=== PATIENT | female | born 1950 | race Caucasian/White ===

== ENCOUNTER 2017-06-01 06:09 | Day surgery (SDC) | payer OTHER ==
[2017-05-21 09:58] VITALS: BMI 40.0
--- NOTE | 2017-05-31 22:10 | History and Physical ---
History & Physical Date May 31, 2017. Chief Complaint Left foot pain History of Present Illness The patient is a 67 year old female with complaints of left foot pain and worsening flat foot deformity. She was treated conservatively however she has failed conservative management. X-rays demonstrate hindfoot osteoarthritis and pes planus deformity. She is now being set up for surgical tx. Past Medical/Surgical History PMH: hx of shingles, pulmonary nodule, Asthma, osteoporosis, hyperlipidemia, hyperuricemia, carotid bruit, gout, diverticulosis, GERD, hypothyroidism, allergic rhinitis Surgical hx: appendectomy, cholecystectomy, hysterectomy, bilateral carpal tunnel release, left TKA, x 3, colonoscopy. Social hx: Denies tobacco use, occasional alcohol use. Allergies Coded Allergies: Cat Dander (Verified Allergy, Mild, RUNNY NOSE, 05/21/17) Dog Dander (Verified Allergy, Mild, RUNNY NOSE, 05/21/17) Dust Mite Extract (Verified Allergy, Mild, RUNNY NOSE, 05/21/17) Grass (Verified Allergy, Mild, RUNNY NOSE, 05/21/17) Molds & Smuts (Verified Allergy, Mild, RUNNY NOSE, 05/21/17) NO KNOWN DRUG ALLERGIES (Verified Allergy, Mild, ., 05/21/17) [place] (Verified Allergy, Mild, RUNNY NOSE, 05/21/17) Home Medications Scheduled Allopurinol (Zyloprim), 300 MG PO QAM Ascorbic Acid (Vitamin C), 1,000 MG PO QAM Aspirin (Aspirin Ec), 81 MG PO QAM Cholecalciferol (Vitamin D3), 1 CAP PO QAM Hydrochlorothiazide (Hctz), 25 MG PO QAM Magnesium Gluconate (Magnesium), 30 MG PO QAM Meloxicam (Mobic), 7.5 MG PO QAM Montelukast Sodium (Singulair), 10 MG PO HS Pantoprazole (Protonix), 40 MG PO QAM Simvastatin (Zocor), 20 MG PO QPM Scheduled PRN Albuterol Hfa (Ventolin Hfa), 2-4 PUFFS INH Q6H PRN for Shortness of Breath Fluticasone Propionate (Inhala (Flovent Diskus), 1 PUFFS INH BID PRN for Shortness of Breath Physical Examination Skin: warm/dry, no rash Eyes: normal inspection Head: normocephalic, atraumatic Neck: supple, trachea midline Respiratory/Chest: lungs clear, normal breath sounds, no respiratory distress Cardiovascular: regular rate, rhythm, no murmur Abdomen / GI: normal bowel sounds, non tender Extremities: + pertinent finding (Left ankle: severe pes planovalgus deformity. Antalgic gait favoring LLE. Swelling of the the left hindfoot. Tender at the sinus tarsi and talonavicular joints. Decreased ROM in all directions, particularly dorsiflexion to 0 degrees. Decreased strength in all directions, especially inverison.) Neurologic/Psych: no motor/sensory deficits, alert, oriented x 3 Diagnosis Left hindfoot osteoarthritis Left pes planovalgus deformity. Left achilles contracture. Plan of Treatment Recommend a left triple arthrodesis, perc. CONNIE. All potential risks, benefits, complications, alternatives and rehab have been discussed with the patient and she wishes to proceed. She will be scheduled for 06.01.17 with ASA 81 mg BID for 4-6 wks for DVT prophylaxis.
[~2017-06-01] VITALS: Ht 162.6 cm; Wt 106.8 kg
[~2017-06-01 06:09] MED LIST: ALLO300T2 PO; ASCO10003 PO; ASPI81TA28 PO; CEFAZOLIN 2000 MG/60 ML D5W IV SCH; CHOL2000 PO; FLUT1AER5 INH; HYDR25TA4 PO; LACTATED RINGER'S 1000ML 1,000 ML IV SCH; MAGN30TA4 PO; MELO7.5T5 PO; MONT1TAB3 PO; PANT40TA PO; SIMV20TA2 PO; VNTHFA/IN INH
[2017-06-01 06:40] VITALS: BP 179/93; PULSE 92; TEMP 36.6; O2SAT 95; Ht 162.6 cm; Wt 106.8 kg
[2017-06-01] MEDS ORDERED: MIDAZOLAM HCL 1 MG/ML 2ML VIAL ONE ×2 (07:05→09:16)
[2017-06-01] MEDS ORDERED: FENTANYL CITRATE INJ 50 MCG/1 ML 2 ML VIAL ONE ×3 (07:05→11:23)
[2017-06-01] MEDS ORDERED: BUPIVACAINE 0.5 % 5 MG/1 ML PF 10ML VIAL ONE (07:14)
[2017-06-01] MEDS ORDERED: BACITRACIN 50000 UNIT VIAL ONE (07:15)
[2017-06-01] MEDS ORDERED: BUPIVACAINE 0.5 % 5 MG/1 ML MPF 30ML VIAL ONE (07:15)
--- NOTE | 2017-06-01 07:36 | History & Physical Bridge Note ---
H&P Re-Evaluation Bridge Note: I have examined the patient, reviewed the History & Physical and in the interval since the performance of the History & Physical I have noted the following changes of clinical significance: No changes noted
[2017-06-01] MEDS ORDERED: ATROPINE SULFATE 0.1 MG/ML 5ML SYR IV PRN (11:00)
[2017-06-01] MEDS ORDERED: LABETALOL HCL IV 5 MG/ML 20ML IV PRN (11:00)
[2017-06-01] MEDS ORDERED: HYDROmorphone INJ 1 MG/ML SYR IV PRN (11:00)
[2017-06-01] MEDS ORDERED: MEPERIDINE HCL 25 MG/ML CARP IV PRN (11:00)
[2017-06-01] MEDS ORDERED: ONDANSETRON INJ 2 MG/ML 2 ML VIAL IV PRN (11:00)
[2017-06-01] MEDS ORDERED: EpHEDrine SULFATE INJ 50 MG/ML AMP IV PRN (11:00)
[2017-06-01] MEDS ORDERED: FENTANYL CITRATE INJ 50 MCG/1 ML 2 ML VIAL IV PRN (11:00)
[2017-06-01] MEDS ORDERED: DEXAMETHASONE SOD INJ 4 MG/ML VIAL ONE (11:27)
[2017-06-01] MEDS ORDERED: LIDOCAINE HCL 2% 2 ML VIAL (20MG/ML) ONE (11:27)
[2017-06-01] MEDS ORDERED: LABETALOL HCL IV 5 MG/ML 20ML IV ONE (11:27)
[2017-06-01] MEDS ORDERED: PROPOFOL IV EMULSION 10 MG/ML 20 ML VIAL IV ONE (11:27)
[2017-06-01] MEDS ORDERED: GLYCOPYRROLATE INJ 0.2 MG/ML VIAL ONE (11:27)
[2017-06-01] MEDS ORDERED: ROCURONIUM BROMIDE 10 MG/ML 5 ML VIAL IV ONE (11:27)
[2017-06-01] MEDS ORDERED: ONDANSETRON INJ 2 MG/ML 2 ML VIAL ONE (11:27)
[2017-06-01] MEDS ORDERED: NEOSTIGMINE METHYLSULFATE 5 MG/5 ML SYR ONE (11:27)
--- NOTE | 2017-06-01 12:06 | DIAGNOSTIC IMAGING REPORT ---
LEFT ANKLE 2 VIEWS CLINICAL HISTORY: LEFT ANKLE TRIPLE arthrodesis. COMPARISON STUDY: None. FINDINGS: Total fluoroscopy time is 14 seconds. 2 fluoroscopic spot images of the left ankle. There is triple arthrodesis of the hindfoot with 3 cannulated screws. The hardware appears intact. IMPRESSION: Fluoroscopy provided for triple arthrodesis of the hindfoot. Electronically signed by: Jaswant Cheng M.D. 06/01/2017 12:04 PM Dictated Date/Time: 06/01/2017 12:03 PM
--- NOTE | 2017-06-01 12:12 | [facility] Post Operative Brief Note ---
Immediate Operative Summary Operative Date Jun 01, 2017. Pre-Operative Diagnosis Left hindfoot osteoarthritis, Posterior Tibial Tendon Dysfunction Grade 3, Left pes planovalgus deformity, Left achilles contracture Post-Operative Diagnosis Left hindfoot osteoarthritis, Posterior Tibial Tendon Dysfunction Grade 3, Left pes planovalgus deformity, Left achilles contracture Procedure(s) Performed 1. Left Triple Arthrodesis; 2. Percutaneous Tendon Achilles Lengthening Surgeon Dr. Trev Chavira Animal Sticker Surgeon(s) Andrew Landaverde PA-C Estimated Blood Loss 5ml Findings See Dict Specimens none per surgeon Dr. Trev Chavira Drains HV x 1 Anesthesia GLMA w/ popliteal and saphenous nerve blocks Complication(s) None Disposition Recovery Room / PACU
--- NOTE | 2017-06-01 13:13 | Anesthesiology Progress Note ---
Anesthesia Post Op Note Date & Time Jun 01, 2017 at 13:13 Vital Signs Pain Intensity: 0 Vital Signs Past 12 Hours Date Time Temp Pulse Resp B/P (MAP) Pulse Ox O2 Delivery O2 Flow Rate FiO2 06/01/17 13:11 36.8 78 18 124/61 94 Nasal Cannula 4 06/01/17 13:00 78 20 129/71 94 Nasal Cannula 4 06/01/17 12:50 75 18 120/57 93 Nasal Cannula 4 06/01/17 12:40 83 20 122/54 93 Nasal Cannula 4 06/01/17 12:30 81 20 127/59 96 Mask 10 06/01/17 12:18 36.3 86 18 140/60 95 Mask 10 06/01/17 08:45 86 16 165/98 (120) 97 Oxymask 5 06/01/17 06:40 36.6 92 20 179/93 95 Room Air Notes Mental Status: alert / awake / arousable, participated in evaluation Pt Amnestic to Procedure: Yes Nausea / Vomiting: adequately controlled Pain: adequately controlled Airway Patency, RR, SpO2: stable & adequate BP & HR: stable & adequate Hydration State: stable & adequate Anesthetic Complications: no major complications apparent
[2017-06-01] MEDS ORDERED: ASPI-589 PO (13:24)
[2017-06-01] MEDS ORDERED: OXYC-57 PO (13:24)
--- NOTE | 2017-06-01 13:25 | Discharge Instructions ---
Discharge Instructions Date of Service Jun 01, 2017. Admission Reason for Admission: Left Ankle/Foot Short Achilles Tendon, Osteoarthri Discharge Discharge Diagnosis / Problem: left hindfoot osteoarthritis Discharge Goals Goal(s): Decrease discomfort, Improve function Activity Recommendations Activity Limitations: per Instructions/Follow-up section Weightbearing Status: Left non-weightbearing . Instructions / Follow-Up Instructions / Follow-Up ACTIVITY RECOMMENDATIONS: Limitations: No weight bearing to affected limb at all times. SPECIAL CARE INSTRUCTIONS: * Some drainage onto the dressing is normal and is no cause for alarm. * Some swelling is natural especially after walking. * When resting, keep your foot elevated above the level of your heart. * Call [facility] if you notice: -Increased drainage -Fever over 101 degrees F -Severe constant pain BANDAGE: * Leave bandage/cast in place unless otherwise directed. * Keep bandage/cast dry at all times. FOLLOW UP VISIT WITH DR. LANDIS If appointment is not already scheduled: Please call [facility] after you get home today to schedule a follow-up appointment for [address] Landis at . Current Hospital Diet Patient's current hospital diet: Discharge Diet Recommended Diet: Regular Diet Procedures Procedures Performed: 1. Left Triple Arthrodesis; 2. Percutaneous Tendon Achilles Lengthening Pending Studies Studies pending at discharge: no Medical Emergencies . Who to Call and When: Medical Emergencies: If at any time you feel your situation is an emergency, please call 911 immediately. . Non-Emergent Contact Non-Emergency issues call your: Surgeon Call Non-Emergent contact if: temperature is above 101, your pain is not controlled, your pain is worsening . "Provider Documentation" section prepared by Andrew Landaverde. . VTE Core Measure Inpt VTE Proph given/why not?: Other Anticoagulation, T.E.D. Stockings
[2017-06-01 13:45] VITALS: BP_SYST 126; BP_SYST 132; BP_DIAS 60; BP_DIAS 67; PULSE 74; PULSE 89; TEMP 36.8; O2SAT 92; O2SAT 93
[2017-06-01 14:15] VITALS: BP 117/50; PULSE 90; TEMP 36.8; O2SAT 93
[2017-06-01 14:50] VITALS: BP 115/57; PULSE 90; O2SAT 93
--- NOTE | 2017-06-01 17:25 | OPERATIVE REPORT ---
DATE OF OPERATION: 06/01/2017 PREOPERATIVE DIAGNOSES: 1. Left hindfoot degenerative joint disease. 2. Posterior tibial tendon dysfunction, grade 3. 3. Left pes planovalgus deformity. 4. Achilles contracture. POSTOPERATIVE DIAGNOSES: Same. PROCEDURES: 1. Left triple arthrodesis. 2. Percutaneous tendo Achilles lengthening. SURGEON: Dr. Trev Chavira. ANESTHETIC ASSISTANT: Andrew Landaverde PA-C, who was present for patient positioning, sterile prep and drape, management of retractors and instruments. He was present through the critical portions of the case including wound closure, application of sterile dressing and transport of the patient to recovery. ANESTHESIA: General LMA with popliteal block with adductor canal block. SPECIMENS: None. DRAINS: Hemovac x1. COMPLICATIONS: None. BLOOD LOSS: 5 mL. PERTINENT HISTORY: This is a 67-year-old woman who had chronic progressive and worsening left hindfoot pain, deformity, swelling and abduction. The patient attempted conservative management including shoewear modification, activity modification, anti-inflammatories, rest, home exercises, physical therapy, and steroid injections and failed all measures. She had radiographic and MRI evidence of posterior tibial tendon dysfunction grade 3, hindfoot degenerative joint disease and severe pes planovalgus. The patient was then scheduled for surgery as indicated. DESCRIPTION OF PROCEDURE: The patient was taken to the Operating Suite, placed supine on the Operating Room table, after consent and identification of the proper operative site, the patient was anesthetized. LMA was placed. Tourniquet was placed high on the left lower extremity. Left lower extremity was then sterilely prepped and draped in the usual fashion. Exsanguinated with an Esmarch bandage and tourniquet inflated to 350 mmHg. Next, the foot was held in dorsiflexion and a three-part percutaneous incision was made with an 11-blade scalpel to lengthen the Achilles tendon using standard technique. Next, the stab incisions were then closed using interrupted skin nesha. Next, the 15-blade scalpel was used to make an incision from the distal aspect of the fibula to the base of the fourth metatarsal. The incision was deepened through subcutaneous tissue and meticulous hemostasis was obtained with electrocautery. Subcutaneous nerves were identified, retracted and protected. The extensor digitorum brevis was identified and was sharply elevated from the anterior process of the calcaneus revealing the sinus tarsi. Next, the sinus tarsi was debrided carefully with a rongeur and 15-blade scalpel. A cervical lamina cow washer was placed in the sinus tarsi opening the subtalar joint. Subtalar joint was then prepared with the use of a curette and rongeur to resect the articular surfaces down to subchondral bleeding bone. Irrigation was performed with sterile normal saline and then 2-mm drill bit was used to further prepare the joint surface with multiple drill holes in both surfaces of the subtalar joint and a small osteotome and mallet were used to fish scale the joint surfaces to increase surface area and bleeding. Next, the calcaneocuboid joint was then entered with the 15-blade scalpel, debrided of soft tissue and then a lamina cow washer was placed in the joint opening it for preparation with a curette and rongeur to remove any articular surface down to subchondral bleeding bone. Next, the 2-mm drill bit was used to further prepare the joint with multiple drill holes into the joint and then a small osteotome and mallet were used to fish scale the joint. Next, the 15-blade was used to make an incision from the distal aspect of the tibia to the base of the naviculocuneiform joint. The incision was deepened through subcutaneous tissue. Meticulous hemostasis obtained with electrocautery. A Weitlaner retractor was placed in the wound. The greater saphenous vein was identified, retracted and protected. The capsule of the talonavicular joint was then entered sharply with a 15-blade scalpel and elevated both superior and inferiorly. A small Gray was placed on the neck of the talus and further soft tissue elevation was performed with the 15-blade scalpel until the talonavicular joint was clearly visualized. The articular surface was then debrided with curette and rongeur and a cervical lamina cow washer was placed in the joint. Next, it was irrigated with sterile normal saline and a 2-mm drill bit was used to make multiple holes in the joint surfaces and fish scaling was performed with a small osteotome and mallet. Next, the medial and lateral incisions were irrigated with sterile normal saline and the joint surfaces were then aligned appropriately based on alignment of the lower extremity and the kneecap. Subtalar joint was aligned and then a 7.3-mm cannulated guidepin was driven from the superior aspect of the talus across the subtalar joint into the calcaneus under fluoroscopic control. Next, an appropriate length 7.3-mm long-thread screw was placed under fluoroscopic control and countersunk slightly. Next, the guidepin was removed. Next, a 2.25-mm guidepin was used to stabilize the talonavicular joint in appropriate alignment and then the calcaneocuboid joint was then stabilized with appropriate alignment under fluoroscopic control. Next, appropriate length of 7.3-mm long-thread cannulated screws were placed across the talonavicular and calcaneocuboid joints respectively under fluoroscopic control. All guidepins were removed. Wounds were irrigated with sterile normal saline and bone graft was then packed in and around the subtalar, talonavicular and calcaneocuboid joints which was comprised of 15 cc of cancellous bone chips. A 10-Tajik single lumen Hemovac drain was then placed in the lateral aspect of the wound exiting dorsolaterally and the extensor digitorum brevis then closed back to its origin with interrupted 2-0 Vicryl sutures. The talonavicular joint capsule was closed using 2-0 Vicryl sutures. The dermis was closed using buried interrupted 3-0 Vicryl sutures medially and laterally and then skin incisions were closed using 4-0 Nylon sutures. A sterile compressive dressing and bulky Phil-Ruiz plaster splint was applied, overwrapped with an Jose wrap. The tourniquet was released. DISPOSITION: Patient awakened and taken to Recovery in stable condition. I attest to the content of the Intraoperative Record and any orders documented therein. Any exceptions are noted below. DEVI
== END 2017-06-01 15:25 | disposition home or self-care (01) ==
LOC: C.ACU 06:09 → ENRESERV 13:02 → CANRESERV 13:02 → CANBEDREQ 13:39 → C.ACU 15:25
PROVIDERS: ATTEND Orthopaedic Surgery Sports Medicine
DX: M19.072 Primary osteoarthritis, left ankle and foot (principal); M67.962 Unspecified disorder of synovium and tendon, left lower leg; M67.02 Short Achilles tendon (acquired), left ankle; M21.42 Flat foot [pes planus] (acquired), left foot; I10 Essential (primary) hypertension; K21.9 Gastro-esophageal reflux disease without esophagitis; J45.909 Unspecified asthma, uncomplicated; E66.01 Morbid (severe) obesity due to excess calories

== ENCOUNTER 2019-05-30 10:30 | Inpatient (IN) ==
--- NOTE | 2019-05-19 15:11 | PAT Medication Instructions ---
Medication Instructions Date of Service May 19, 2019 Home Medications allopurinol 300 mg PO QAM aspirin 81 mg PO QAM calcium carbonate [Calcium 600] 600 mg PO QAM cholecalciferol (vitamin D3) Vitamin D3 1,000 mg PO QAM hydrochlorothiazide 25 mg PO QAM levothyroxine 25 mcg PO QAM magnesium 250 mg PO QAM meloxicam 7.5 mg PO QAM montelukast 10 mg PO QAM pantoprazole 40 mg PO QAM simvastatin 20 mg PO QAM albuterol sulfate 180 mcg INHALATION QID PRN ASK your surgeon for instructions meloxicam 7.5 mg PO QAM ASK your prescriber and surgeon aspirin 81 mg PO QAM DO NOT take the morning of surgery calcium carbonate [Calcium 600] 600 mg PO QAM cholecalciferol (vitamin D3) Vitamin D3 1,000 mg PO QAM hydrochlorothiazide 25 mg PO QAM magnesium 250 mg PO QAM montelukast 10 mg PO QAM Take morning of surgery With a small sip of water, OTHERWISE NOTHING TO EAT OR DRINK AFTER MIDNIGHT: allopurinol 300 mg PO QAM levothyroxine 25 mcg PO QAM pantoprazole 40 mg PO QAM simvastatin 20 mg PO QAM albuterol sulfate 180 mcg INHALATION QID PRN (use if needed; please bring with you to hospital day of surgery if possible) Take evening before surgery albuterol sulfate 180 mcg INHALATION QID PRN (if needed) Other Notes If you have any questions please call us at [phone] or [phone] or [phone] or [phone]
--- NOTE | 2019-05-20 09:11 | Anesthesiology Consultation ---
Date of Service May 20, 2019 Assessment & Plan (1) Encounter for pre-operative examination: Chart Review Chart Review: Acceptable Risk for Surgery and Patient seen in Pre Admission Testing Teaching & Discussion Pre-Anesthesia Teaching/Discussion Notes: Instructed NPO after midnight before surgery,except medications with 15 cc of water. Medication instructions provided according to the PAT guidelines. History Surgery Operation Date: 05/30/19 12:10 Proposed Procedures p Left Ankle Removal of Hardware, - Trev Chavira DO s Tibiotalar Fusion with Autograft, Left Foot Retrocalcaneal Nail Fusion, Left Ankle Autograft Holton Distal Fibula - Trev Chavira DO Height/Weight Height: 5 ft 5 in Weight: 124 kg Allergies Allergy/AdvReac Type Severity Reaction Status Date / Time cat dander Allergy Mild RUNNY NOSE Verified 05/15/19 15:02 dog dander Allergy Mild RUNNY NOSE Verified 05/15/19 15:02 grass pollen-perennial rye, Allergy Mild RUNNY NOSE Verified 05/15/19 15:02 standar mold Allergy Mild RUNNY NOSE Verified 05/15/19 15:02 No Known Drug Allergies Allergy Mild . Verified 05/15/19 15:02 Dust Mite Extract Allergy Mild RUNNY NOSE Uncoded 05/15/19 15:02 [place] Allergy Mild RUNNY NOSE Uncoded 05/15/19 15:02 Medications Home Medications Medication Instructions Recorded Confirmed Last Taken allopurinol 300 mg PO QAM 01/19/19 05/15/19 01/19/19 aspirin 81 mg PO QAM 01/19/19 05/15/19 01/19/19 calcium carbonate [Calcium 600] 600 mg PO QAM 01/19/19 05/15/19 01/19/19 cholecalciferol (vitamin D3) 1,000 mg PO QAM 01/19/19 05/15/19 01/19/19 [Vitamin D3] hydrochlorothiazide 25 mg PO QAM 01/19/19 05/15/19 01/19/19 levothyroxine 25 mcg PO QAM 01/19/19 05/15/19 01/19/19 magnesium 250 mg PO QAM 01/19/19 05/15/19 01/19/19 meloxicam 7.5 mg PO QAM 01/19/19 05/15/19 01/19/19 montelukast 10 mg PO QAM 01/19/19 05/15/19 01/19/19 pantoprazole 40 mg PO QAM 01/19/19 05/15/19 01/19/19 simvastatin 20 mg PO QAM 01/19/19 05/15/19 01/19/19 albuterol sulfate 180 mcg INHALATION QID PRN 05/15/19 05/15/19 Unknown Past Medical History Medical History Asthma stable GERD (gastroesophageal reflux disease) controlled Gout Hyperlipidemia Hypothyroidism Morbid obesity Osteoarthritis Osteoporosis Pulmonary HTN "Mild" per 08/2018 ECHO Swelling of lower leg on HCTZ Valvular heart disease "Mild" aortic stenosis (MG 1.4cm2, 17mmhg), Mild mitral stenosis per 08/2018 ECHO Exercise / Class Metabolic Activity III < 4 Walking/Shop/Light housework (uses cane (while wearing walking boot) for balance) Past Family History Family History Other No significant family history Past Surgical History Surgical History History of ankle surgery LEFT ANKLE History of appendectomy History of carpal tunnel release RT/LEFT History of cataract surgery RT/LEFT History of section X 3 History of cholecystectomy History of colonoscopy History of esophagogastroduodenoscopy (EGD) History of tonsillectomy History of tooth extraction History of total abdominal hysterectomy History of total knee replacement LEFT Past Anesthesia History No Hx of Anesthesia Complications (except PONV (no issues with most recent surgery)) History of PONV History of PONV (no issues with most recent surgery) Social History Smoking Status: Never smoker Do You Dip or Chew Tobacco: No Hx Alcohol Use: No Hx Substance Use: No substance use type: does not use Review of Systems Reflux controlled. Patient denies chest pain, shortness of breath, cough, wheezing, palpitations. Physical Exam Vital Signs VITALS BP 124/72 P 76 TEMP 97.7 SP02 95%RA RESP 16 PHYSICAL Full neck and c-spine range of motion. Full TMJ range of motion. TMD 3 finger breaths Mallampati Score 2 Dentition: upper partial Lungs: clear throughout to auscultation Cardiac: regular rate and rhythm, II/ systolic murmur Spine: kyphosis vs. cervical fat pad Carotid arteries: very faint bruit b/l Extremities: right ankle non-pitting edema, left foot in walking boot Testing Laboratory Results 05/20/19 09:30 05/20/19 09:30 PT 10.6 Seconds (9.0-12.0) 05/20/19 09:30 INR 1.0 (0.9-1.1) 05/20/19 09:30 APTT 30.1 Seconds (21.0-31.0) 05/20/19 09:30 Electrocardiogram Date: 05/20/19 Findings: + NSR @ (77) Chest X-Ray Date: 05/20/19 Atherosclerosis of the aortic arch. Cardiac silhouette normal in size. Lungs and pleural spaces clear. Degenerative changes of the thoracic spine. Cholec ystectomy clips noted. Echocardiogram Date: 09/03/18 EF > 70%. Hyperdynamic LV systolic function with no RWMA. Calcified aortic root/proximal descending thoracic aorta. Moderate LAD. Grade I DD. Heavily calcified aortic valve. Mild aortic stenosis (KATIE 1.4cm2, MG 17mmhg). Mild mitral stenosis. Mild pulmonary HTN. Other Testing Carotid duplex: 05/19/13: No hemodynamically significant stenosis. Tortuous b/l ICA. B/L vertebral antegrade flow.
--- NOTE | 2019-05-20 09:49 | XRay Report ---
XR chest Pre-admission PA/Lat CLINICAL HISTORY: 69 years-old Female presenting with preoperative evaluation. TECHNIQUE: PA and lateral views of the chest were obtained. COMPARISON: None. FINDINGS: Atherosclerosis of the aortic arch. Cardiac silhouette normal in size. Lungs and pleural spaces clear . Degenerative changes of the thoracic spine. Cholecystectomy clips noted. IMPRESSION: 1. No acute cardiopulmonary disease. Electronically signed by: Tate Amaya M.D. 05/20/2019 9:48 AM
[2019-05-20 10:56] LABS: Basophils # (auto) 0.04 K/uL (0-0.2); Basophils % (auto) 0.4 %; Eosinophils # (auto) 0.19 K/uL (0-0.5); Eosinophils % (auto) 2.1 %; Hematocrit (blood only) 42.6 % (37-47); Hemoglobin 14.5 g/dL (12.0-16.0); Immature Granulocytes # (auto) 0.03 K/uL (0.00-0.02); Immature Granulocytes % (auto) 0.3 %; Lymphocytes # (auto) 2.61 K/uL (1.2-3.4); Lymphocytes % (auto) 29.2 %; Mean Corpuscular Volume 90.1 fL (80-100); Mean Platelet Volume 10.2 fL (7.4-10.4); Monocytes # (auto) 1.12 K/uL (0.11-0.59); Monocytes % (auto) 12.5 %; Neutrophils # (auto) 4.95 K/uL (1.4-6.5); Neutrophils % (auto) 55.5 %; Platelet Count 264 K/uL (130-400); RDW Coefficient of Variation 14.1 % (11.5-14.5); RDW Standard Deviation 46.4 fL (36.4-46.3); Red Blood Count 4.73 M/uL (4.2-5.4); White Blood Count 8.94 K/uL (4.8-10.8)
[2019-05-20 11:03] LABS: BUN Creatinine Ratio 21.8 (10-20); Calcium 9.6 mg/dl (8.5-10.1); Creatinine Clr Calc Pharmacy 100.3 ml/min; Est GFR (African American) 102.5; Est GFR (Non-African American) 88.4; Potassium 4.1 mmol/L (3.5-5.1)
[2019-05-20 11:07] LABS: Partial Thromboplastin Ratio 1.1; Partial Thromboplastin Time 30.1 Seconds (21.0-31.0); Prothrombin Time 10.6 Seconds (9.0-12.0)
--- NOTE | 2019-05-29 17:05 | History & Physical Report ---
Date of Service May 29, 2019 Assessment & Plan (1) Osteoarthritis of ankle, left: Schedule left ankle fusion with retrocalcaneal nail and autograft, distal fibula autograft harvest, removal hardware x 3 screws from the subtalar/calcaneocuboid/talonavicular fusion sites for 05.30.19. All potential risks, benefits, complications, alternatives, and rehab have been discussed with the patient and she wishes to proceed. Plan for ASA 81 mg BID x 30 days for DVT prophylaxis. (2) Retained orthopedic hardware: History of Present Illness Chief Complaint: left ankle pain Primary Care Provider: Bharath Crespo DO This is a patient with a previous hx of a triple arthrodesis that healed well. 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 She was treated conservatively but failed all conservative management. She is now being set up for surgical management. Allergies Allergy/AdvReac Type Severity Reaction Status Date / Time cat dander Allergy Mild RUNNY NOSE Verified 05/15/19 15:02 dog dander Allergy Mild RUNNY NOSE Verified 05/15/19 15:02 grass pollen-perennial rye, Allergy Mild RUNNY NOSE Verified 05/15/19 15:02 standar mold Allergy Mild RUNNY NOSE Verified 05/15/19 15:02 No Known Drug Allergies Allergy Mild . Verified 05/15/19 15:02 Dust Mite Extract Allergy Mild RUNNY NOSE Uncoded 05/15/19 15:02 [place] Allergy Mild RUNNY NOSE Uncoded 05/15/19 15:02 Home Medications Home Medications Medication Instructions Recorded Confirmed Type allopurinol 300 mg PO QAM 01/19/19 05/15/19 History aspirin 81 mg PO QAM 01/19/19 05/15/19 History calcium carbonate [Calcium 600] 600 mg PO QAM 01/19/19 05/15/19 History cholecalciferol (vitamin D3) 1,000 mg PO QAM 01/19/19 05/15/19 History [Vitamin D3] hydrochlorothiazide 25 mg PO QAM 01/19/19 05/15/19 History levothyroxine 25 mcg PO QAM 01/19/19 05/15/19 History magnesium 250 mg PO QAM 01/19/19 05/15/19 History meloxicam 7.5 mg PO QAM 01/19/19 05/15/19 History montelukast 10 mg PO QAM 01/19/19 05/15/19 History pantoprazole 40 mg PO QAM 01/19/19 05/15/19 History simvastatin 20 mg PO QAM 01/19/19 05/15/19 History albuterol sulfate 180 mcg INHALATION QID PRN 05/15/19 05/15/19 History Past Med/Surg History Medical History Asthma stable GERD (gastroesophageal reflux disease) controlled Gout Hyperlipidemia Hypothyroidism Morbid obesity Osteoarthritis Osteoporosis Pulmonary HTN "Mild" per 08/2018 ECHO Swelling of lower leg on HCTZ Valvular heart disease "Mild" aortic stenosis (MG 1.4cm2, 17mmhg), Mild mitral stenosis per 08/2018 ECHO Surgical History History of ankle surgery LEFT ANKLE History of appendectomy History of carpal tunnel release RT/LEFT History of cataract surgery RT/LEFT History of section X 3 History of cholecystectomy History of colonoscopy History of esophagogastroduodenoscopy (EGD) History of tonsillectomy History of tooth extraction History of total abdominal hysterectomy History of total knee replacement LEFT Family History Other No significant family history Social History Preferred Language: Amharic Communication Ability: Effective Cell Geneticist Required: No Beliefs That Will Affect Care: None Current Living Situation: Spouse Other Information That Helps Us Care for You: No Feels Safe at Home: Yes Safety Concerns: Feels Safe At This Time Smoking Status: Never smoker Do You Dip or Chew Tobacco: No ; Second Hand Exposure: Yes ( A CHILD) ; Tobacco Cessation Education Requested by Patient: No Hx Alcohol Use: No Hx Substance Use: No Physical Exam Constitutional: well developed and well nourished; no acute distress ENMT: external ear and nose normal, oropharynx normal Neck: trachea midline, no thyromegaly Respiratory: normal respiratory effort, lungs clear to auscultation Cardiovascular: Rate/Rhythm: regular rate and regular rhythm Gastrointestinal (Abdomen): normal bowel sounds, soft, nontender, no hepatosplenomegaly Musculoskeletal: Left ankle: pes planovalgus deformity. Decreased ROM secondary to triple arthrodesis. Pain and crepitation with tibiotalar motion. Tender anterior ankle joint. Skin: no rashes, warm and dry Neurologic: normal touch/pain/proprioception Psychiatric: A+Ox3, euthymic affect Lymphatic: no cervical or axillary lymphadenopathy
[~2019-05-30 10:30] MED LIST changes: -ALLO300T2 PO; -ASCO10003 PO; -ASPI81TA28 PO; -CEFAZOLIN 2000 MG/60 ML D5W IV SCH; -CHOL2000 PO; -FLUT1AER5 INH; -HYDR25TA4 PO; -LACTATED RINGER'S 1000ML 1,000 ML IV SCH; +LR 15ML/HR IV SCH; -MAGN30TA4 PO; -MELO7.5T5 PO; -MONT1TAB3 PO; -PANT40TA PO; +ROPIVACAINE 0.5% 5 MG/ML 30 ML VIAL ONE; -SIMV20TA2 PO; -VNTHFA/IN INH
[2019-05-30] MEDS ORDERED: SCOPOLAMINE 1.5 MG TDSY ONE (13:50)
[2019-05-30] MEDS ORDERED: MIDAZOLAM HCL 1 MG/ML 2ML VIAL ONE ×2 (13:51→13:57)
[2019-05-30] MEDS ORDERED: fentaNYL citrate 100 MCG/2 ML VIAL ONE ×3 (13:57→17:08)
[2019-05-30] MEDS ORDERED: ePHEDrine sulfate 50 MG/ML AMP IV PRN (14:16)
[2019-05-30] MEDS ORDERED: ATROPINE SULFATE 0.1 MG/ML 10ML SYR IV PRN (14:16)
[2019-05-30] MEDS ORDERED: HYDROmorphone INJ 2 MG/ML SYR/VIAL IV PRN (14:16)
--- NOTE | 2019-05-30 14:29 | History & Physical Bridge Note ---
Date of Service May 30, 2019 History & Physical Bridge Note I have examined the patient, reviewed the History & Physical and in the interval since the performance of the History & Physical I have noted the following changes of clinical significance: no changes noted
[2019-05-30] MEDS ORDERED: BACITRACIN INJ 50,000 UNIT VIAL ONE (14:31)
[2019-05-30] MEDS ORDERED: CEFAZOLIN 2,000 MG/15 ML IV PUSH IV ONE (14:32)
[2019-05-30] MEDS ORDERED: CEFAZOLIN 2000MG 2,000 MG/15 ML SYR IV ONE (14:51)
[2019-05-30] MEDS ORDERED: ROPIVACAINE 0.5% 5 MG/ML 30 ML VIAL ONE (14:59)
[2019-05-30] MEDS ORDERED: SUCCINYLCHOLINE CHLORIDE 20 MG/ML 10 ML VIAL ONE (15:58)
[2019-05-30] MEDS ORDERED: PROPOFOL IV EMULSION 10 MG/ML 20 ML VIAL IV ONE ×2 (15:58→17:23)
[2019-05-30] MEDS ORDERED: ROCURONIUM BROMIDE 10 MG/ML 5 ML VIAL ONE (15:58)
[2019-05-30] MEDS ORDERED: ONDANSETRON INJ 2 MG/ML 2 ML VIAL ONE ×2 (15:58→18:02)
[2019-05-30] MEDS ORDERED: LIDOCAINE HCL 2% 2 ML VIAL/AMP(20MG/ML) INFIL ONE (15:58)
[2019-05-30] MEDS ORDERED: LABETALOL HCL IV 5 MG/ML 20ML IV ONE ×4 (17:10→18:02)
[2019-05-30] MEDS ORDERED: MAGNESIUM HYDROXIDE SUSP 30 ML UDC PO PRN (18:05)
[2019-05-30] MEDS ORDERED: ONDANSETRON INJ 2 MG/ML 2 ML VIAL IV PRN (18:05)
[2019-05-30] MEDS ORDERED: METOCLOPRAMIDE HCL INJ 5 MG/ML 2 ML VIAL IV PRN (18:05)
[2019-05-30] MEDS ORDERED: HYDROmorphone INJ 0.5 MG/0.5 ML SYR IV PRN (18:05)
[2019-05-30] MEDS ORDERED: NALOXONE HCL 0.4 MG/1 ML VIAL/CARP IV PRN (18:05)
[2019-05-30] MEDS ORDERED: BISACODYL 10 MG SUPP PR PRN (18:05)
[2019-05-30] MEDS ORDERED: ALUMINUM/MAGNESIUM SUSP 30 ML UDC PO PRN (18:05)
[2019-05-30] MEDS ORDERED: NO NSAIDS SCH (18:15)
--- NOTE | 2019-05-30 18:23 | Fluoroscopy Report ---
FL ankle LT min 3V RTN CLINICAL HISTORY: LEFT FOOT RETROCALCANEAL NAIL FUSION COMPARISON STUDY: 06/01/2017 FLUOROSCOPY TIME: 125 seconds. NUMBER OF FLUOROSCOPIC IMAGES: 4 FINDINGS: There is been revision of the hindfoot fusion. There is now evidence for a retrocalcaneal n ail fusion with evidence of tibiotalar fusion. There is an intramedullary tibial shahram traversing the t ibiotalar joint and talus calcaneal joint. There is evidence for a distal fibular osteotomy. IMPRESSION: Intraoperative radiographs demonstrating a tibiotalar and hindfoot fusion. Electronically signed by: Kayden Tracy M.D. 05/30/2019 6:21 PM
--- NOTE | 2019-05-30 18:51 | Post Operative Brief Note ---
Immediate Post Op Note v1 Date of Surgery May 30, 2019 Pre & Post Diagnosis Operation Date: 05/30/19 12:30 Pre-Op Diagnosis: (1) Osteoarthritis of ankle, left: (2) Retained orthopedic hardware: (3) valgus deformity left ankle Post-Op Diagnosis: (1) Osteoarthritis of ankle, left: (2) Retained orthopedic hardware: (3) valgus deformity left ankle Procedure Operation Date: 05/30/19 12:30 Actual Procedures p Left Ankle Removal of Hardware (3 separate incision sites),(Left) - Trev Chavira DO s Tibiotalar Fusion with Autograft, Left Foot Retrocalcaneal Nail Fusion, Left Ankle Autograft [place] Distal Fibula(Left) - Trev Chavira DO Surgeon Trev Chavira DO [employer] Controls Mechanic Alonso Butterfield PA-C Estimated Blood Loss 100 Findings Consistent with Post-Op Diagnosis Specimens None Drains Hemovac Drain (10 fr) Anesthesia Type General Regional Complications none Disposition Accompanied Patient To Recovery: No Disposition: Recovery Room
--- NOTE | 2019-05-30 19:29 | Anesthesiology Progress Note ---
Date of Service May 30, 2019 Anesthesia Post Procedure Vital Signs Vital Signs: Temp Pulse Pulse Resp BP BP Pulse Ox 05/30/19 19:25 83 18 136/58 L 93 05/30/19 19:15 86 19 138/55 L 95 05/30/19 19:05 90 20 131/54 L 94 05/30/19 18:56 36.2 C L 92 H 20 130/58 L 96 05/30/19 11:00 36.8 C 91 H 18 104/78 97 Pain Intensity Left Ankle: Pain Intensity: 0 Transfer of Care Handoff Completed per policy Notes Mental Status: alert / awake / arousable and participated in evaluation Patient Amnestic to Procedure: Yes Nausea / Vomiting: adequately controlled Pain: adequately controlled Airway Patency, RR, SpO2: stable & adequate BP & HR: stable & adequate Hydration State: stable & adequate Anesthetic Complications: no major complications apparent
[2019-05-30] MEDS: SODIUM CHLORIDE 0.9% 1000ML 1,000 ML IV SCH (19:50)
[2019-05-30] MEDS ORDERED: ALBUTEROL HFA INHALER 8.5 GM INH PRN (20:15)
[2019-05-30] MEDS ORDERED: SENNA 8.6 MG TAB PO SCH (21:00)
[2019-05-30] MEDS: OXYCODONE HCL IR 5 MG TAB (IMMEDIATE RELEASE) PO PRN (22:02)
[2019-05-30] MEDS: ASPIRIN 81 MG ECTAB PO SCH (22:03)
[2019-05-30] MEDS: ACETAMINOPHEN 500 MG TAB PO SCH (22:04)
[2019-05-30] MEDS: DOCUSATE SODIUM 100 MG CAP PO SCH (22:04)
[2019-05-30] MEDS: CEFAZOLIN 2000MG 2,000 MG/15 ML SYR IV SCH (22:05)
--- NOTE | 2019-05-31 02:15 | Operative Report ---
DATE OF OPERATION: 05/30/2019 PREOPERATIVE DIAGNOSES: 1. Left ankle retained hardware x3 screws. 2. Degenerative arthritis, left ankle. 3. Osteoarthritis of the left ankle. 4. Valgus deformity of the left ankle. POSTOPERATIVE DIAGNOSES: 1. Left ankle retained hardware x3 screws. 2. Degenerative arthritis, left ankle. 3. Osteoarthritis of the left ankle. 4. Valgus deformity of the left ankle. PROCEDURES: 1. Left ankle tibiotalar fusion with autograft. 2. Left retrocalcaneal nail fusion. 3. Left ankle autograft harvest of the fibula. 4. Left ankle removal of hardware (3 separate incision sites). SURGEON: Trev Chavira D.O. DESK REPRESENTATIVE: Alonso Butterfield PA-C, who was present for patient positioning, sterile prep and drape, management of retractors and instruments. He was present through the critical portions of the case including wound closure, application of sterile dressing and transport of the patient to recovery. ANESTHESIA: General regional. SPECIMENS: None. DRAINS: Hemovac x1. COMPLICATIONS: None. BLOOD LOSS: 100 mL. PERTINENT HISTORY: This is a 69-year-old woman who had a prior triple arthrodesis due to the posterior tibial tendon dysfunction and tear grade 3. She had a successful outcome for several years; however, then noted worsening ankle and lateral hindfoot pain as her foot began to drift further and further into valgus. She is obese and has chronic progressive degenerative changes of the left ankle joint over time. The patient attempted and failed conservative management including use of a brace, anti-inflammatories, rest, intra-articular steroid injections, physician directed home exercises and use of an assistive device. Radiographs demonstrated severe valgus deformity, retained hardware and degenerative arthritis of the tibiotalar joint. The patient is scheduled for surgery as indicated. All potential risks, benefits, complications, alternatives, rehab, potential for incomplete relief of the symptoms, need for further surgery, DVT, PE, , persistent pain, swelling, scarring, weakness, neurovascular injury, wound complications, hardware failure, nonunion, malunion, bone fracture were discussed with the patient. The patient decided to proceed with the procedure as indicated. DESCRIPTION OF PROCEDURE: After induction of sedation and regional anesthetic of the left lower extremity in the preoperative holding area, the patient was taken to the operative suite, placed supine on the operating table. I reviewed consent and identification of proper operative site. The patient was anesthetized. LMA was placed. Tourniquet was placed high on left thigh over cast padding. Left lower extremity was then sterilely prepped and draped in usual fashion, elevated and extended with an Esmarch bandage, tourniquet inflated to 350 mmHg. Next, a #15 blade scalpel was used to make a curvilinear incision centered over the distal fibula extending distally over the lateral foot at the site of prior incision. Incision was deepened through the skin and subcutaneous tissue as well as through the subcutaneous scar tissue. The sinus tarsi was entered and full-thickness skin flaps developed, elevated anteriorly. The peroneal tendons were identified, retracted and protected. The fibula was then skeletonized with a #15 blade scalpel. Appropriate retractors were placed both anterior and posterior and the distal aspect of the fibula was then resected with an oblique osteotomy cut in line with the ankle mortise. Fibula was then removed, split in half with sagittal saw and then the cancellous bone was then harvested for later use as autograft. Next, the tibiotalar joint was then visualized. Hohmann retractors were placed anterior and posterior as well as a lamina candy packer placed in the tibiotalar joint opening the severe valgus deformity. Tibiotalar joint was then irrigated with sterile normal saline until clear and then the joint was then prepped using rongeur and curette to remove any residual articular cartilage down to subcortical bone. Next, the bony surface was then drilled with a 2.0-mm drill bit and then fish scaled with a 6-mm osteotome and mallet. As this was completed, next attention then directed toward the screws that were in the hindfoot and the talus. Three separate incisions were made, one over the talar neck, one medial and one lateral to localize the screw heads. Some rongeur was required to remove overgrown bone. Screws were removed and the holes were curetted with a small curette and irrigated with sterile normal saline. Next, the retrocalcaneal nail guide pin was then placed percutaneously through the plantar aspect of the foot through a small stab incision with #15 blade scalpel. Hemostat was used to spread the soft tissue and then placed in the center-center position both AP and lateral projections in line with the lateral process of the talus on the lateral and in the center-center position of the tibia. Approximately 5 degrees of compensatory varus was built into the fusion as the nail provided 5-7 degrees of valgus during its contour. Next, guide pin was placed through the calcaneus, talus, and then opening reamer was passed through the calcaneus and talus. Next, the 5.5-mm drill was then passed in through the plantar incision through the bones of the heel and hindfoot through the talus and into the tibia under live fluoroscopic assistance. This was drilled into the tibia and then a ball tip guide shahram was passed through the calcaneus, talus and into the tibia. Next, sequential reaming was performed with 11.5-mm reaming, was irrigated with sterile normal saline followed by implantation of the 240 mm x 10 mm retrocalcaneal Synthes nail. Once this was placed under live fluoroscopic assistance to appropriate depth, a #15 blade scalpel, an incision was made posterior aspect of the calcaneal tuberosity and the spiral blade was inserted over a guide pin placed under live fluoroscopic assistance to depth of 90 mm. A second locking screw, 6 mm x 90 mm was placed to the secondary locking device in the calcaneus. Next, this was back slapped to further compress subtalar joint fusion and then a talar locking screw was placed obliquely through the posterolateral portal site under live fluoroscopic assistance. Next, autograft was then impacted into the tibiotalar joint, making up the deficit left by the previous valgus deformity of the ankle. This was placed in a more anatomic alignment. There is no impingement and there is more appropriate striking position for the heel at neutral dorsiflexion. After this was completed, the bone graft was then impacted into the tibiotalar joint. The nail was then backslapped to provide compression at the tibiotalar joint and this was locked using 2 locking screws, 1 in the dynamic slot, 1 in the static slot through 2 small stab incisions in the medial aspect of the tibia placed in live fluoroscopic assistance. Once the locking screws were in place, the construct was stabilized and compressed as appropriate. Final radiographs were obtained and all incisions then carefully irrigated with sterile normal saline with bacitracin until clear. Top gloves were changed and a full-thickness flap closure was performed on the lateral flap with 2-0 Vicryl. The 10-Persian Hemovac drain was placed exiting dorsolaterally. The medial incision was closed using buried interrupted 2-0 Vicryl. The dermis was closed using buried interrupted 3-0 Vicryl and then the plantar heel was closed using skin nesha after the dermis was closed using 3-0 Vicryl. Next, the sterile compressive dressing and bulky Phil Ruiz plaster splint was applied overwrapped with an Jose wrap. The tourniquet was released. The patient was awakened and taken to recovery room in stable condition. I attest to the content of the Intraoperative Record and any orders documented therein. Any exception s are noted below.
[2019-05-31] MEDS: OXYCODONE HCL IR 5 MG TAB (IMMEDIATE RELEASE) PO PRN ×2 (03:56→13:36)
[2019-05-31] MEDS: ACETAMINOPHEN 500 MG TAB PO SCH ×2 (05:47→13:36)
[2019-05-31] MEDS: SODIUM CHLORIDE 0.9% 1000ML 1,000 ML IV SCH (05:51)
[2019-05-31 06:22] LABS: Hematocrit (blood only) 37.3 % (37-47); Hemoglobin 12.5 g/dL (12.0-16.0); Mean Corpuscular Hgb Conc 33.5 g/dL (32-36); Mean Corpuscular Volume 88.6 fL (80-100); Mean Platelet Volume 9.7 fL (7.4-10.4); Platelet Count 242 K/uL (130-400); RDW Coefficient of Variation 14.6 % (11.5-14.5); RDW Standard Deviation 47.6 fL (36.4-46.3); Red Blood Count 4.21 M/uL (4.2-5.4); White Blood Count 13.83 K/uL (4.8-10.8)
[2019-05-31] MEDS ORDERED: LEVOTHYROXINE SODIUM 25 MCG TABLET PO SCH (06:30)
[2019-05-31] MEDS: CEFAZOLIN 2000MG 2,000 MG/15 ML SYR IV SCH (06:40)
[2019-05-31 07:06] LABS: BUN Creatinine Ratio 21.7 (10-20); Est GFR (African American) 78.8; Potassium 3.4 mmol/L (3.5-5.1)
[2019-05-31] MEDS: ASPIRIN 81 MG ECTAB PO SCH (08:16)
[2019-05-31] MEDS: DOCUSATE SODIUM 100 MG CAP PO SCH (08:16)
[2019-05-31] MEDS ORDERED: hydroCHLOROthiazide 25 MG TAB PO SCH (09:00)
[2019-05-31] MEDS ORDERED: CALCIUM CARBONATE 1250MG TAB PO SCH (09:00)
[2019-05-31] MEDS ORDERED: ALLOPURINOL 300 MG TAB PO SCH (09:00)
[2019-05-31] MEDS ORDERED: MULTIVITAMIN TAB PO SCH (09:00)
[2019-05-31] MEDS ORDERED: SIMVASTATIN 20 MG TAB PO SCH (09:00)
[2019-05-31] MEDS ORDERED: CHOLECALCIFEROL 1,000 UNITS TAB PO SCH (09:00)
[2019-05-31] MEDS ORDERED: PANTOprazole 40 MG TAB PO SCH (09:00)
[2019-05-31] MEDS ORDERED: NON-FORMULARY MEDICATION (Magnesium 250 MG) PO SCH (09:00)
[2019-05-31] MEDS ORDERED: MONTELUKAST SODIUM 10 MG TABLET PO SCH (09:00)
--- NOTE | 2019-05-31 11:12 | Orthopedic Progress Note ---
Date of Service May 31, 2019 Assessment & Plan (1) Osteoarthritis of ankle, left: 1. Left ankle tibiotalar fusion with autograft. 2. Left retrocalcaneal nail fusion. 3. Left ankle autograft harvest of the fibula. 4. Left ankle removal of hardware (3 separate incision sites). DC home today, NWB left LE ASA DVT prophalxis Subjective POD#1 . Patient notes pain is well controlled and would like to go home today. No dizziness, CP, SOB, Calf pain Physical Exam Physical Exam: Toes mobile, NVI. Calves soft, non tender. Splint in place. Results & Data Vital Signs (Past 12 Hours) Vital Signs Temp Pulse Resp BP Pulse Ox 05/31/19 07:57 36.6 C 85 16 108/60 92 05/31/19 03:26 36.7 C 83 16 113/58 L 97
--- NOTE | 2019-06-03 14:14 | Discharge Summary ---
DISCHARGE DIAGNOSES: Left ankle retained hardware x3 screws; degenerative arthritis, left ankle; osteoarthritis, left ankle; valgus deformity of the left ankle. SECONDARY DIAGNOSES: Asthma, gastroesophageal reflux disease, gout, hyperlipidemia, hypothyroidism, morbid obesity, osteoarthritis, osteoporosis, pulmonary hypertension, lower extremity swelling, valvular heart disease. CONSULTS: None. COMPLICATIONS: None. PROCEDURES: Left ankle tibiotalar fusion with autograft, left retrocalcaneal nail fusion, left ankle autograft harvesting of the fibula and the left ankle removal of hardware by Dr. Chavira on 05/30/2019. BRIEF HISTORY: As dictated in the history and physical. HOSPITAL SUMMARY: The patient was admitted on the above-noted date and had the above-noted surgery performed, which she tolerated well. On the first postoperative day, the patient notes pain is well controlled and would like to go home. No dizziness and denied shortness of breath, chest pain or calf pain. Toes were mobile. Neurovascularly intact. Calves were soft, nontender and a splint was in place. The patient was otherwise remaining stable. Vital signs were stable and she was afebrile and it was felt she could be discharged to home on 05/31/2019. For further review, please see chart. LABORATORY AND X-RAY DATA: As per chart. DISCHARGE INSTRUCTIONS: The patient was discharged home in satisfactory condition on 05/31/2019. Diet: Regular. Activity: Nonweightbearing, left lower extremity. Follow hindfoot reconstruction instructions and follow up with Dr. Chavira in 2 weeks. The patient is to call for appointment if one has not made for you. DISCHARGE MEDICATIONS: Acetaminophen 1000 mg p.o. q. 8 hours, aspirin 81 mg p.o. b.i.d., oxycodone 5-10 mg p.o. q. 4 hours p.r.n. Resume home meds as listed. Stop taking aspirin and meloxicam.
== END 2019-05-31 14:03 | disposition home or self-care (01) | DRG 493 ==
LOC: ASU 10:30 → 3E 18:05

== ENCOUNTER 2021-05-13 14:00 | Observation (INO) ==
--- NOTE | 2021-05-13 17:54 | XRay Report ---
XR chest 1V portable HISTORY: 71 years-old Female Chest Pain . Acute atypical chest pain COMPARISON: Chest radiograph 05/20/2019 TECHNIQUE: Portable AP view of the chest FINDINGS: Cardiac silhouette is enlarged. No pneumothorax. Mild bilateral reticular interstitial opacities. Mil d right hemidiaphragmatic elevation. No pleural effusion or lobar airspace consolidation. Bones appea r grossly intact. IMPRESSION: Mild bilateral reticular opacities have progressed from 2019 and may be on a chronic basi s. Pulmonary vascular congestion or interstitial pneumonitis also considered. ACT 112: Negative or not required by law. The above report was generated using voice recognition software. It may contain grammatical, syntax o r spelling errors. Electronically signed by: Timothy Barahona M.D. 05/13/2021 5:52 PM
[2021-05-13] MEDS ORDERED: NITROGLYCERIN 2% OINTMENT 30GM TUBE EXT ONE (17:57)
[2021-05-13] MEDS ORDERED: SODIUM CHLORIDE 0.9% 1000ML 1,000 ML IV ONE (17:57)
[2021-05-13] MEDS ORDERED: ASPIRIN CHEW 324 MG PO STA (17:58)
--- NOTE | 2021-05-13 18:03 | Emergency Department Note ---
Impression & Plan Chest pain, Acute hypotension ED Provider Note NAME: ZEN FUNK AGE: 71 SEX: F : 1950 ARRIVES VIA: Walk-In INFORMANT: Patient ED PROVIDER(S): Alex Sofia DO CHIEF COMPLAINT: Chest pain HPI: Patient is a 71-year-old female who presents ER for precordial chest pressure/fullness. She has had this since yesterday associated with left arm pain and neck pain which has now resolved. It started again today and now her pain is to about a 1 out of 10. Denies any belly pain, nausea, vomiting, or diarrhea. No dysuria, urgency, or frequency. She does have a history of hypertension hyperlipidemia. She is not a smoker. Denies any other complaints at this time. She notes 2 previous days she did have some reflux as well. She has taken all her medications for her elevated blood pressure. No previous problems with her aorta. ROS: See above HPI for pertinent positives & negatives. A total of 10 systems reviewed and were otherwise negative. PAST MEDICAL HISTORY:See Below PAST SURGICAL HISTORY:See Below FAMILY HISTORY:See Below SOCIAL HISTORY:See Below HOME MEDICATIONS:See Below ALLERGIES:See Below VITALS:See Below PHYSICAL EXAMINATION: GENERAL: Sitting up in bed, alert, well appearing, well nourished, no distress, non-toxic EYE EXAM: normal conjunctiva. OROPHARYNX: no exudate, no erythema, lips, buccal mucosa, and tongue normal and mucous membranes are moist NECK: supple, no nuchal rigidity, no adenopathy, non-tender LUNGS: Clear to auscultation. Normal chest wall mechanics HEART: no murmurs, S1 normal and S2 normal ABDOMEN: abdomen soft, non-tender, normo-active bowel sounds, no masses, no rebound or guarding. UPPER EXTREMITIES: upper extremities are grossly normal. LOWER EXTREMITIES: No pitting edema. NEURO EXAM: Normal sensorium, cranial nerves II-XII grossly intact, normal speech, no gross weakness of arms, no gross weakness of legs. MEDICAL DECISION MAKING: Patient is a 71-year-old female who presents the ER for left neck pain and chest pain. IV was established blood was obtained. Labs show mild leukocytosis. No significant anemia. INR unremarkable. BMP with LFTs bilirubin and troponin was negative. Magnesium was unremarkable. Covid was negative. Chest x-ray unremarkable. Patient was updated bedside. She was placed on Nitropaste as pressures were in the 200s initially. This trended down to the 170s. She was discussed with hospitalist admitted for further work-up. She was given aspirin as well. Discussed with Pt concerning signs and symptoms to watch out for. Pt w as instructed to follow up with their PCP and discussed with the patient their option to return to the ED at anytime for persistent or worsening symptoms. The appropriate anticipatory guidance and out-patient management, including indications for return to the emergency department, were explained at length to the patient and understood. Triage Nursing notes reviewed. Limited review of prior medical records performed Vital Signs: reviewed and remarkable for HTN and tachy Differential diagnosis: Differential diagnoses includes but is not limited to acute coronary syndrome, myocardial infarction, pericarditis, pulmonary embolus, aortic dissection, pneumonia, pneumothorax, musculoskeletal, shingles, esophageal. ER treatment provided: See below Diagnostics interpreted by me: ECG: Sinus rhythm rate of 98 Normal axis No PVCs QTC 462 ST wave changes in the high lateral leads new from 2017 Cardiac Monitoring: An order was placed for continuous cardiac monitoring. The monitor shows a rate of 101 with sinus rhythm. Laboratory studies: As stated above and show below. Imaging studies: Portable AP upright 1 view of the chest was unremarkable Consultation(s): Discussed with Flavio Mejía for further evaluation Procedures: none Critical Care: None Past Med/Surg History Medical History (Updated 05/13/21 @ 22:31 by Alex Sofia DO) Asthma stable GERD (gastroesophageal reflux disease) controlled Gout Hyperlipidemia Hypertension Hypothyroidism Morbid obesity Osteoarthritis Osteoporosis Pulmonary HTN "Mild" per 08/2018 ECHO Swelling of lower leg on HCTZ Valvular heart disease "Mild" aortic stenosis (MG 1.4cm2, 17mmhg), Mild mitral stenosis per 08/2018 ECHO Surgical History History of ankle surgery LEFT ANKLE History of appendectomy History of carpal tunnel release RT/LEFT History of cataract surgery RT/LEFT History of section X 3 History of cholecystectomy History of colonoscopy History of esophagogastroduodenoscopy (EGD) History of tonsillectomy History of tooth extraction History of total abdominal hysterectomy History of total knee replacement LEFT Family History Other No significant family history Social History Smoking Status: Never smoker Second Hand Exposure: Yes ( A CHILD); Hx Alcohol Use: No Hx Substance Use: No Preferred Language: Khmer Communication Ability: Effective Reducing Salon Attendant Required: No Beliefs That Will Affect Care: None marital status: Current Living Situation: Spouse Feels Safe at Home: Yes Assistive Devices: Glasses and Walker Allergies Allergies Allergy/AdvReac Type Severity Reaction Status Date / Time cat dander Allergy Mild RUNNY NOSE Verified 05/13/21 19:44 dog dander Allergy Mild RUNNY NOSE Verified 05/13/21 19:44 grass pollen-perennial rye, Allergy Mild RUNNY NOSE Verified 05/13/21 19:44 standar mold Allergy Mild RUNNY NOSE Verified 05/13/21 19:44 No Known Drug Allergies Allergy Mild . Verified 05/13/21 19:44 Home Meds Home Medications Medication Instructions Recorded Confirmed allopurinol 300 mg tablet 300 mg PO QAM 01/19/19 05/13/21 calcium carbonate 600 mg calcium 600 mg PO QAM 01/19/19 05/13/21 (1,500 mg) tablet (Calcium) cholecalciferol (vitamin D3) 25 1,000 mg PO QAM 01/19/19 05/13/21 mcg (1,000 unit) tablet (Vitamin D3) hydrochlorothiazide 25 mg tablet 25 mg PO QAM 01/19/19 05/13/21 levothyroxine 25 mcg tablet 25 mcg PO QAM 01/19/19 05/13/21 magnesium 250 mg tablet 250 mg PO QAM 01/19/19 05/13/21 montelukast 10 mg tablet 10 mg PO QAM 01/19/19 05/13/21 pantoprazole 40 mg tablet,delayed 40 mg PO QAM 01/19/19 05/13/21 release simvastatin 20 mg tablet 20 mg PO QAM 01/19/19 05/13/21 aspirin 81 mg tablet,delayed 81 mg PO QAM 05/13/21 05/13/21 release losartan 50 mg tablet 50 mg PO QAM 05/13/21 05/13/21 meloxicam 7.5 mg tablet 7.5 mg PO QAM 05/13/21 05/13/21 Results & Data (ED) Vital Signs Vital Signs - 24 hr 05/13/21 14:05 05/13/21 14:08 05/13/21 18:00 Temperature 36.7 C Temperature Source Temporal Artery Scan Pulse Rate 108 H 88 Pulse Rate from SpO2 Sensor 88 Respiratory Rate 18 16 Respiratory Effort / Characteristics Non-Labored Spontaneous Non-Labored Spontaneous Respiratory Depth Normal Normal Respiratory Pattern Regular Blood Pressure 213/95 H 172/88 H Blood Pressure Mean 134 116 Blood Pressure Position Sitting Pulse Oximetry 96 98 Oxygen Delivery Method Room Air Room Air Sepsis Recent Fever Within 48 Hours No Sepsis New/Unexplained Change in Mental Status N/A Sepsis Action Taken by Nursing No Action Required 05/13/21 18:08 05/13/21 19:00 05/13/21 19:30 Temperature Temperature Source Pulse Rate 86 90 Pulse Rate from SpO2 Sensor 88 89 Respiratory Rate 23 18 Respiratory Effort / Characteristics Respiratory Depth Respiratory Pattern Blood Pressure 159/114 H 170/97 H Blood Pressure Mean 129 121 Blood Pressure Position Pulse Oximetry 98 97 Oxygen Delivery Method Room Air Sepsis Recent Fever Within 48 Hours Sepsis New/Unexplained Change in Mental Status Sepsis Action Taken by Nursing Laboratory Data Result diagrams: 05/13/21 18:00 05/13/21 18:00 Lab Results 05/13/21 05/13/21 05/13/21 Range/Units 18:00 18:00 18:00 WBC 12.80 H (4.8-10.8) K/uL RBC 5.14 (4.2-5.4) M/uL Hgb 15.7 (12.0-16.0) g/dL Hct 46.2 (37-47) % MCV 89.9 (80-100) fL MCH 30.5 (25-34) pg MCHC 34.0 (32-36) g/dL RDW Std Deviation 46.6 H (36.4-46.3) fL RDW Coeff of Stella 14.2 (11.5-14.5) % Plt Count 274 (130-400) K/uL MPV 9.7 (7.4-10.4) fL Immature Gran % (Auto) 0.3 % Neut % (Auto) 65.1 % Lymph % (Auto) 25.4 % [place] % (Auto) 7.9 % Eos % (Auto) 0.9 % Baso % (Auto) 0.4 % Neut # (Auto) 8.34 H (1.4-6.5) K/uL Lymph # (Auto) 3.25 (1.2-3.4) K/uL [place] # (Auto) 1.01 H (0.11-0.59) K/uL Eos # (Auto) 0.11 (0-0.5) K/uL Baso # (Auto) 0.05 (0-0.2) K/uL Immature Gran # (Auto) 0.04 H (0.00-0.02) K/uL PT 10.3 (9.0-12.0) Seconds INR 1.0 (0.9-1.1) APTT 28.0 (21.0-31.0) Seconds PTT Ratio 1.1 Sodium 137 (136-145) mmol/L Potassium 3.7 (3.5-5.1) mmol/L Chloride 103 (98-107) mmol/L Carbon Dioxide 28 (21-32) mmol/L Anion Gap 6.0 (3-11) BUN 17 (7-18) mg/dl Creatinine 0.77 (0.6-1.2) mg/dl Est Cr Clr Drug Dosing 88.1 ml/min Est GFR ( Amer) 90.0 ml/min Est GFR (Non-Af Amer) 77.7 ml/min BUN/Creatinine Ratio 22.0 H (10-20) Glucose 97 (70-99) mg/dl Calcium 9.7 (8.5-10.1) mg/dl Magnesium 2.4 (1.8-2.4) mg/dl Total Bilirubin 0.5 (0.2-1) mg/dl AST 30 (15-37) U/L ALT 45 (12-78) U/L Alkaline Phosphatase 103 (45-117) U/L Troponin I < 0.015 (0-0.045) ng/ml Total Protein 9.2 H (6.4-8.2) gm/dl Albumin 4.3 (3.4-5.0) gm/dl Globulin 4.9 H (2.5-4.0) gm/dl Albumin/Globulin Ratio 0.9 (0.9-2) COVID-19 Eval Order SARS-CoV-2 (PCR) (Negative) 05/13/21 05/13/21 Range/Units 18:54 18:54 WBC (4.8-10.8) K/uL RBC (4.2-5.4) M/uL Hgb (12.0-16.0) g/dL Hct (37-47) % MCV (80-100) fL MCH (25-34) pg MCHC (32-36) g/dL RDW Std Deviation (36.4-46.3) fL RDW Coeff of Stella (11.5-14.5) % Plt Count (130-400) K/uL MPV (7.4-10.4) fL Immature Gran % (Auto) % Neut % (Auto) % Lymph % (Auto) % [place] % (Auto) % Eos % (Auto) % Baso % (Auto) % Neut # (Auto) (1.4-6.5) K/uL Lymph # (Auto) (1.2-3.4) K/uL [place] # (Auto) (0.11-0.59) K/uL Eos # (Auto) (0-0.5) K/uL Baso # (Auto) (0-0.2) K/uL Immature Gran # (Auto) (0.00-0.02) K/uL PT (9.0-12.0) Seconds INR (0.9-1.1) APTT (21.0-31.0) Seconds PTT Ratio Sodium (136-145) mmol/L Potassium (3.5-5.1) mmol/L Chloride (98-107) mmol/L Carbon Dioxide (21-32) mmol/L Anion Gap (3-11) BUN (7-18) mg/dl Creatinine (0.6-1.2) mg/dl Est Cr Clr Drug Dosing ml/min Est GFR ( Amer) ml/min Est GFR (Non-Af Amer) ml/min BUN/Creatinine Ratio (10-20) Glucose (70-99) mg/dl Calcium (8.5-10.1) mg/dl Magnesium (1.8-2.4) mg/dl Total Bilirubin (0.2-1) mg/dl AST (15-37) U/L ALT (12-78) U/L Alkaline Phosphatase (45-117) U/L Troponin I (0-0.045) ng/ml Total Protein (6.4-8.2) gm/dl Albumin (3.4-5.0) gm/dl Globulin (2.5-4.0) gm/dl Albumin/Globulin Ratio (0.9-2) COVID-19 Eval Order Covid19 at [facility] SARS-CoV-2 (PCR) NEGATIVE (Negative) Administered Medications Discontinued Medications Aspirin (Aspirin Chew 324 Mg) 243 mg PO NOW STA Stop: 05/13/21 17:59 Last Admin: 05/13/21 18:04 Dose: 243 mg Documented by: [id number] Sodium Chloride (Nss 1000ml) 1,000 mls @ 999 mls/hr IV .Q1H1M ONE Stop: 05/13/21 18:57 Last Infusion: 05/13/21 19:08 Dose: 0 mls/hr Documented by: [id number] Admin: 05/13/21 18:00 Dose: 999 mls/hr Documented by: [id number] Metoprolol Succinate (Metoprolol Succ 25mg Ext Rel Tab) 25 mg PO NOW STA Stop: 05/13/21 19:57 Last Admin: 05/13/21 20:48 Dose: 25 mg Documented by: [id number] Nitroglycerin (Nitroglycerin 2% Ointment 30gm Tube) 1 inch EXT NOW ONE Stop: 05/13/21 17:58 Last Admin: 05/13/21 18:04 Dose: 1 inch Documented by: [id number] Potassium Chloride (Potassium Chloride Crtab 20 Meq Tabcr) 20 meq PO NOW STA Stop: 05/13/21 19:59 Last Admin: 05/13/21 20:48 Dose: 20 meq Documented by: [id number] Imaging Data Radiologist's Impression: Chest X-Ray 05/13/21 17:41 XR chest 1V portable HISTORY: 71 years-old Female Chest Pain . Acute atypical chest pain COMPARISON: Chest radiograph 05/20/2019 TECHNIQUE: Portable AP view of the chest FINDINGS: Cardiac silhouette is enlarged. No pneumothorax. Mild bilateral reticular interstitial opacities. Mild right hemidiaphragmatic elevation. No pleural effusion or lobar airspace consolidation. Bones appear grossly intact. IMPRESSION: Mild bilateral reticular opacities have progressed from 2019 and may be on a chronic basis. Pulmonary vascular congestion or interstitial pneumonitis also considered. ACT 112: Negative or not required by law. The above report was generated using voice recognition software. It may contain grammatical, syntax or spelling errors. Electronically signed by: Timothy Barahona M.D. 05/13/2021 5:52 PM Discharge Plan Visit Data Chief Complaint: Chest Pain Stated Complaint: CHEST PAIN, LEFT SHOULDER PAIN, HYPERTENSION ED Provider: Alex Sofia Discharge Problem: Chest pain, Acute hypotension Patient Disposition: Admitted As Inpatient Discharge Instructions Interventions: ED Discharge Assessment Last Done: 05/13/21 21:00 Discharge Problem: Chest pain Qualifiers: Chest pain type: unspecified Qualified Code(s): R07.9 - Chest pain, unspecified
[2021-05-13 18:10] LABS: Basophils # (auto) 0.05 K/uL (0-0.2); Basophils % (auto) 0.4 %; Eosinophils # (auto) 0.11 K/uL (0-0.5); Eosinophils % (auto) 0.9 %; Hematocrit (blood only) 46.2 % (37-47); Hemoglobin 15.7 g/dL (12.0-16.0); Immature Granulocytes # (auto) 0.04 K/uL (0.00-0.02); Immature Granulocytes % (auto) 0.3 %; Lymphocytes # (auto) 3.25 K/uL (1.2-3.4); Lymphocytes % (auto) 25.4 %; Mean Corpuscular Hemoglobin 30.5 pg (25-34); Mean Corpuscular Volume 89.9 fL (80-100); Mean Platelet Volume 9.7 fL (7.4-10.4); Monocytes # (auto) 1.01 K/uL (0.11-0.59); Monocytes % (auto) 7.9 %; Neutrophils # (auto) 8.34 K/uL (1.4-6.5); Neutrophils % (auto) 65.1 %; Platelet Count 274 K/uL (130-400); RDW Coefficient of Variation 14.2 % (11.5-14.5); RDW Standard Deviation 46.6 fL (36.4-46.3); Red Blood Count 5.14 M/uL (4.2-5.4)
[2021-05-13 18:22] LABS: Partial Thromboplastin Ratio 1.1; Prothrombin Time 10.3 Seconds (9.0-12.0)
[2021-05-13 18:32] LABS: Alanine Aminotransferase 45 U/L (12-78); Albumin Level 4.3 gm/dl (3.4-5.0); Aspartate Aminotransferase 30 U/L (15-37); Blood Urea Nitrogen 17 mg/dl (7-18); Calcium 9.7 mg/dl (8.5-10.1); Carbon Dioxide 28 mmol/L (21-32); Chloride 103 mmol/L (98-107); Creatinine Clr Calc Pharmacy 88.1 ml/min; Est GFR (Non-African American) 77.7 ml/min; Glucose 97 mg/dl (70-99); Potassium 3.7 mmol/L (3.5-5.1); Sodium 137 mmol/L (136-145)
[2021-05-13 18:37] LABS: Albumin Globulin Ratio 0.9 (0.9-2); Alkaline Phosphatase 103 U/L (45-117); Bilirubin,Total 0.5 mg/dl (0.2-1); Globulin 4.9 gm/dl (2.5-4.0); Total Protein 9.2 gm/dl (6.4-8.2); Troponin I < 0.015 ng/ml (0-0.045)
[2021-05-13] MEDS ORDERED: METOPROLOL TARTRATE 1 MG/ML VIAL IV PRN (19:56)
[2021-05-13] MEDS ORDERED: METOPROLOL SUCC 25MG EXT REL TAB PO STA (19:56)
[2021-05-13] MEDS ORDERED: POTASSIUM CHLORIDE CRTAB 20 MEQ TABCR PO STA (19:58)
--- NOTE | 2021-05-13 20:12 | History & Physical Report ---
Date of Service May 13, 2021 Assessment & Plan (1) Chest pain radiating to jaw: Plan: Chest pain radiating to jaw and left shoulder/hypertension- The patient will be admitted to telemetry for serial cardiac enzymes, serial EKG's, cardiac rhythm monitoring and a 2-D echocardiogram with Dopplers. Continue aspirin 81 mg every morning, losartan 50 mg every morning, magnesium 2050 mg every morning. Add metoprolol succinate 25 mg p.o. now Lopressor 5 mg IV every 4 hours as needed systolic blood pressure greater than 160 (2) Hypertension: Plan: See above (3) Carotid bruit present: Plan: Carotid bruit present on the right, with decreased upstroke on the left Order carotid Dopplers (4) Asthma: Plan: Not on any routine inhalers (5) Valvular heart disease: Plan: Mild aortic stenosis noted on previous echo. Check with echo this admission (6) Hypothyroidism: Plan: Continue levothyroxine 25 mcg every morning (7) Hyperlipidemia: Plan: Continue simvastatin 20 mg every morning Check a fasting lipid panel (8) GERD (gastroesophageal reflux disease): Plan: Continue pantoprazole 40 mg every morning (9) Gout: Plan: Continue allopurinol 300 mg every morning hold HCTZ History of Present Illness Chief Complaint: The patient presents to the emergency department with complaint of upper sternum, left-sided neck and left shoulder pain, with first episode yesterday, and repeat episode today. Primary Care Provider: Bharath Crespo DO The patient is a 71-year-old female with a past medical history including gout, hypertension, vitamin D deficiency, hypothyroidism, osteoarthritis, GERD, hyperlipidemia and morbid obesity. She presents with symptoms as noted above. Her symptoms yesterday began while she was standing, initially began as sharp left-sided neck pain, which then extended into her left shoulder. Her symptoms did improve later on in the day without intervention. She slept okay last night, and then as the day progressed today she did develop recurrence of the discomfort, and also had upper sternal discomfort as well. She presents to the ED for further assessment. Allergies Allergy/AdvReac Type Severity Reaction Status Date / Time cat dander Allergy Mild RUNNY NOSE Verified 05/13/21 19:44 dog dander Allergy Mild RUNNY NOSE Verified 05/13/21 19:44 grass pollen-perennial rye, Allergy Mild RUNNY NOSE Verified 05/13/21 19:44 standar mold Allergy Mild RUNNY NOSE Verified 05/13/21 19:44 No Known Drug Allergies Allergy Mild . Verified 05/13/21 19:44 Dust Mite Extract Allergy Mild RUNNY NOSE Uncoded 05/13/21 19:44 [place] Allergy Mild RUNNY NOSE Uncoded 05/13/21 19:44 Home Medications Medication Instructions Recorded Confirmed Type allopurinol 300 mg tablet 300 mg PO QAM 01/19/19 05/13/21 History calcium carbonate 600 mg calcium 600 mg PO QAM 01/19/19 05/13/21 History (1,500 mg) tablet (Calcium) cholecalciferol (vitamin D3) 25 1,000 mg PO QAM 01/19/19 05/13/21 History mcg (1,000 unit) tablet (Vitamin D3) hydrochlorothiazide 25 mg tablet 25 mg PO QAM 01/19/19 05/13/21 History levothyroxine 25 mcg tablet 25 mcg PO QAM 01/19/19 05/13/21 History magnesium 250 mg tablet 250 mg PO QAM 01/19/19 05/13/21 History montelukast 10 mg tablet 10 mg PO QAM 01/19/19 05/13/21 History pantoprazole 40 mg tablet,delayed 40 mg PO QAM 01/19/19 05/13/21 History release simvastatin 20 mg tablet 20 mg PO QAM 01/19/19 05/13/21 History aspirin 81 mg tablet,delayed 81 mg PO QAM 05/13/21 05/13/21 History release losartan 50 mg tablet 50 mg PO QAM 05/13/21 05/13/21 History meloxicam 7.5 mg tablet 7.5 mg PO QAM 05/13/21 05/13/21 History Past Med/Surg History Medical History (Updated 05/13/21 @ 20:08 by Flavio Mejía MD) Asthma stable GERD (gastroesophageal reflux disease) controlled Gout Hyperlipidemia Hypertension Hypothyroidism Morbid obesity Osteoarthritis Osteoporosis Pulmonary HTN "Mild" per 08/2018 ECHO Swelling of lower leg on HCTZ Valvular heart disease "Mild" aortic stenosis (MG 1.4cm2, 17mmhg), Mild mitral stenosis per 08/2018 ECHO Surgical History History of ankle surgery LEFT ANKLE History of appendectomy History of carpal tunnel release RT/LEFT History of cataract surgery RT/LEFT History of section X 3 History of cholecystectomy History of colonoscopy History of esophagogastroduodenoscopy (EGD) History of tonsillectomy History of tooth extraction History of total abdominal hysterectomy History of total knee replacement LEFT Family History Other No significant family history Social History Smoking Status: Never smoker Second Hand Exposure: Yes ( A CHILD); Hx Alcohol Use: No Hx Substance Use: No Preferred Language: Irish Communication Ability: Effective Supervisor Tank Storage Required: No Beliefs That Will Affect Care: None marital status: Current Living Situation: Spouse Feels Safe at Home: Yes Assistive Devices: Glasses and Walker Review of Systems Review of Systems: The patient denies palpitations, shortness of breath, dyspnea on exertion, cough, lower extremity swelling, sore throat, fevers, chills, sweats, weight change, fatigue, nausea, vomiting, diarrhea , constipation, abdominal pain, pelvic pain, blood in urine or stool, dysuria, urinary frequency or urgency, lightheadedness, dizziness, headache, memory loss, loss of consciousness, rash, abnormal bruising or bleeding, imbalance, focal or generalized weakness, numbness or tingling in right arm or bilateral legs, generalized arthralgias or myalgias, back or neck pain, or night sweats. The review of systems is otherwise negative other than for that already noted above, and at least 10 systems have been reviewed. Physical Exam Physical Exam: The patient is awake, alert and oriented 3, well developed and well nourished, normocephalic and atraumatic, lying in bed and in no acute distress. HEENT--PERRL, EOMI, mucous membranes and oropharynx normal. Neck--supple. No JVD. No bruits. Thyroid normal, trachea midline, no adenopathy. Heart--normal S1 and S2. No murmurs, rubs or gallops. Lungs--clear bilaterally, no respiratory distress, no accessory muscle use. Abdomen--normal bowel sounds and soft. Nontender. Nondistended. Morbidly obese Extremities--no cyanosis or clubbing. No edema. There are good distal pulses b/l. Dermatologic--normal skin turgor, normal color, no abnormal lymph nodes, no rash. Neurologic--cranial nerves II through XII grossly intact. Rheumatologic--normal range of motion. Psychiatric--normal affect. Results & Data Results & Data ([facility]) Vital Signs (Past 12 Hours) Vital Signs Temp Pulse Resp BP Pulse Ox 05/13/21 19:30 90 18 170/97 H 97 05/13/21 19:00 86 23 159/114 H 98 05/13/21 18:00 88 16 172/88 H 98 05/13/21 14:05 98.1 F 108 H 18 213/95 H 96 Laboratory Results Laboratory Results WBC 12.80 K/uL (4.8-10.8) H 05/13/21 18:00 RBC 5.14 M/uL (4.2-5.4) 05/13/21 18:00 Hgb 15.7 g/dL (12.0-16.0) 05/13/21 18:00 Hct 46.2 % (37-47) 05/13/21 18:00 MCV 89.9 fL (80-100) 05/13/21 18:00 MCH 30.5 pg (25-34) 05/13/21 18:00 MCHC 34.0 g/dL (32-36) 05/13/21 18:00 RDW Std Deviation 46.6 fL (36.4-46.3) H 05/13/21 18:00 RDW Coeff of Stella 14.2 % (11.5-14.5) 05/13/21 18:00 Plt Count 274 K/uL (130-400) 05/13/21 18:00 MPV 9.7 fL (7.4-10.4) 05/13/21 18:00 Immature Gran % (Auto) 0.3 % 05/13/21 18:00 Neut % (Auto) 65.1 % 05/13/21 18:00 Lymph % (Auto) 25.4 % 05/13/21 18:00 [place] % (Auto) 7.9 % 05/13/21 18:00 Eos % (Auto) 0.9 % 05/13/21 18:00 Baso % (Auto) 0.4 % 05/13/21 18:00 Neut # (Auto) 8.34 K/uL (1.4-6.5) H 05/13/21 18:00 Lymph # (Auto) 3.25 K/uL (1.2-3.4) 05/13/21 18:00 [place] # (Auto) 1.01 K/uL (0.11-0.59) H 05/13/21 18:00 Eos # (Auto) 0.11 K/uL (0-0.5) 05/13/21 18:00 Baso # (Auto) 0.05 K/uL (0-0.2) 05/13/21 18:00 Immature Gran # (Auto) 0.04 K/uL (0.00-0.02) H 05/13/21 18:00 PT 10.3 Seconds (9.0-12.0) 05/13/21 18:00 INR 1.0 (0.9-1.1) 05/13/21 18:00 APTT 28.0 Seconds (21.0-31.0) 05/13/21 18:00 PTT Ratio 1.1 05/13/21 18:00 Sodium 137 mmol/L (136-145) 05/13/21 18:00 Potassium 3.7 mmol/L (3.5-5.1) 05/13/21 18:00 Chloride 103 mmol/L (98-107) 05/13/21 18:00 Carbon Dioxide 28 mmol/L (21-32) 05/13/21 18:00 Anion Gap 6.0 (3-11) 05/13/21 18:00 BUN 17 mg/dl (7-18) 05/13/21 18:00 Creatinine 0.77 mg/dl (0.6-1.2) 05/13/21 18:00 Est Cr Clr Drug Dosing 88.1 ml/min 05/13/21 18:00 Est GFR ( Amer) 90.0 ml/min 05/13/21 18:00 Est GFR (Non-Af Amer) 77.7 ml/min 05/13/21 18:00 BUN/Creatinine Ratio 22.0 (10-20) H 05/13/21 18:00 Glucose 97 mg/dl (70-99) 05/13/21 18:00 Calcium 9.7 mg/dl (8.5-10.1) 05/13/21 18:00 Total Bilirubin 0.5 mg/dl (0.2-1) 05/13/21 18:00 AST 30 U/L (15-37) 05/13/21 18:00 ALT 45 U/L (12-78) 05/13/21 18:00 Alkaline Phosphatase 103 U/L (45-117) 05/13/21 18:00 Troponin I < 0.015 ng/ml (0-0.045) 05/13/21 18:00 Total Protein 9.2 gm/dl (6.4-8.2) H 05/13/21 18:00 Albumin 4.3 gm/dl (3.4-5.0) 05/13/21 18:00 Globulin 4.9 gm/dl (2.5-4.0) H 05/13/21 18:00 Albumin/Globulin Ratio 0.9 (0.9-2) 05/13/21 18:00 COVID-19 Eval Order Covid19 at [facility] 05/13/21 18:54 Impressions Chest X-Ray 05/13/21 17:41 XR chest 1V portable HISTORY: 71 years-old Female Chest Pain . Acute atypical chest pain COMPARISON: Chest radiograph 05/20/2019 TECHNIQUE: Portable AP view of the chest FINDINGS: Cardiac silhouette is enlarged. No pneumothorax. Mild bilateral reticular interstitial opacities. Mild right hemidiaphragmatic elevation. No pleural effusion or lobar airspace consolidation. Bones appear grossly intact. IMPRESSION: Mild bilateral reticular opacities have progressed from 2019 and may be on a chronic basis. Pulmonary vascular congestion or interstitial pneumonitis also considered. ACT 112: Negative or not required by law. The above report was generated using voice recognition software. It may contain grammatical, syntax or spelling errors. Electronically signed by: Timothy Barahona M.D. 05/13/2021 5:52 PM ECG Additional Comments: ZEN FUNK ID:[id number] 13-MAY-2021 14:13:15 [facility]- EDSTAT ROUTINE RETRIEVAL Normal sinus rhythm Normal ECG When compared with ECG of 20-MAY-2019 09:28, No significant change was found 25mm/s 10mm/mV 150Hz 9.0.9 12SL 241 SHITAL: 16 Unconfirmed Vent. rate 98 BPM MN interval 198 ms QRS duration 86 ms QT/QTc 362/462 ms P-R-T axes 53 18 56 1950 (71 yr) Female 14lb Room: Loc:15 Motel Clerk:Nika Galloway Te Code Status & VTE Plan Code Status Full code VTE Prophylaxis Plan VTE Prophylaxis will be ordered: Yes PG Care Time/CCT Total # of Minutes Spent Total Time Spent with Patient: Total time spent is greater than 50% in coordination of care (as documented) at patient's floor/unit and/or counseling patient: Coding Level of Care Code INT OBSERVATION CARE 70M LVL 3 Diagnoses Chest pain radiating to jaw R07.9 Hypertension I10 Carotid bruit present R09.89 Asthma J45.909 Valvular heart disease I38 Hypothyroidism E03.9 Hyperlipidemia E78.5 GERD (gastroesophageal reflux disease) K21.9 Gout M10.9
[2021-05-13 20:22] LABS: Magnesium 2.4 mg/dl (1.8-2.4)
[2021-05-13] MEDS ORDERED: ONDANSETRON INJ 2 MG/ML 2 ML VIAL IV PRN (21:33)
[2021-05-13] MEDS ORDERED: ACETAMINOPHEN 325 MG TAB PO PRN (21:33)
--- NOTE | 2021-05-13 22:47 | Ultrasound Report ---
US carotid doppler BI CLINICAL HISTORY: 71 years-old Female with carotid bruit on right, decreased upstroke on left. COMPARISON: None TECHNIQUE: Multiple real time sonographic images of the carotid bifurcations were obtained assessing gao scale, color Doppler and spectral wave form appearance FINDINGS: RIGHT CAROTID: The peak systolic velocity measured within the right ICA is88 cm/sec. The end diasto lic velocity measured 19 cm/sec. The ICA to CCA ratio measured 0.88 which correlates with a stenosis of 0-50%. Moderate atherosclerotic plaque of the right carotid bulb and proximal right ICA. LEFT CAROTID: The peak systolic velocity measured within the left ICA is98 cm/sec. The end diastoli c velocity measured 20 cm/sec. The ICA to CCA ratio measured 0.98 which correlates with a stenosis of 0-50%. Mild atherosclerotic plaque of the left carotid bulb. There is normal antegrade vertebral flow bilaterally. IMPRESSION: 1. Right greater than left atherosclerotic plaque of the carotid bulbs. No hemodynamically significa nt stenosis. 2. Normal antegrade vertebral flow bilaterally. ACT 112: Negative or not required by law. The above report was generated using voice recognition software. It may contain grammatical, syntax o r spelling errors. Electronically signed by: Timothy Barahona M.D. 05/13/2021 10:45 PM
[2021-05-14] MEDS: NITROGLYCERIN 2% OINTMENT 30GM TUBE EXT SCH ×3 (00:07→12:06)
[2021-05-14 04:25] VITALS: TEMP 97.9
[2021-05-14] MEDS ORDERED: LEVOTHYROXINE SODIUM 25 MCG TABLET PO SCH (06:30)
[2021-05-14 07:09] LABS: Basophils # (auto) 0.03 K/uL (0-0.2); Basophils % (auto) 0.4 %; Eosinophils # (auto) 0.27 K/uL (0-0.5); Eosinophils % (auto) 3.7 %; Hematocrit (blood only) 41.8 % (37-47); Hemoglobin 13.8 g/dL (12.0-16.0); Immature Granulocytes # (auto) 0.01 K/uL (0.00-0.02); Immature Granulocytes % (auto) 0.1 %; Lymphocytes % (auto) 35.8 %; Mean Corpuscular Hemoglobin 30.2 pg (25-34); Mean Corpuscular Volume 91.5 fL (80-100); Mean Platelet Volume 9.6 fL (7.4-10.4); Monocytes # (auto) 0.79 K/uL (0.11-0.59); Monocytes % (auto) 10.9 %; Neutrophils # (auto) 3.57 K/uL (1.4-6.5); Neutrophils % (auto) 49.1 %; Platelet Count 252 K/uL (130-400); RDW Coefficient of Variation 14.5 % (11.5-14.5); RDW Standard Deviation 48.9 fL (36.4-46.3); Red Blood Count 4.57 M/uL (4.2-5.4); White Blood Count 7.27 K/uL (4.8-10.8)
[2021-05-14 07:21] LABS: Partial Thromboplastin Ratio 1.1; Partial Thromboplastin Time 27.8 Seconds (21.0-31.0); Prothrombin Time 10.6 Seconds (9.0-12.0)
[2021-05-14 07:26] LABS: Albumin Level 3.4 gm/dl (3.4-5.0); BUN Creatinine Ratio 28.7 (10-20); Calcium 8.8 mg/dl (8.5-10.1); Creatinine Clr Calc Pharmacy 107.6 ml/min; Est GFR (African American) 104.6 ml/min; Est GFR (Non-African American) 90.2 ml/min; Magnesium 2.2 mg/dl (1.8-2.4)
--- NOTE | 2021-05-14 07:28 | Hospitalist Progress Note ---
Date of Service May 14, 2021 Assessment & Plan (1) Chest pain radiating to jaw: Plan: This is a 71-year-old female with a notable past medical history of hypertension, asthma, mild aortic stenosis, hypothyroidism, hyperlipidemia, GERD, gout presented to [facility] for evaluation of 2 days of intermittent left neck pain that radiated to the jaw and substernal area. She requires hospitalization at this time for further evaluation of chest pain, and to rule out ACS. Atypical Chest Pain Patient reporting approximately 2 days of intermittent left-sided neck pain that radiated to her shoulder --> of note, she did get a feeling of fullness/discomfort whenever she swallowed as well ECG without any acute repolarization or conduction abnormalities, troponins negative x2 Stable respiratory function, no oxygen requirement, Wells 0 - low suspicion for PE - CXR demonstrating bilateral reticular opacities - chronic. Likely pulmonary vascular congestion. Given that the chest "fullness" was primarily occurring with swallowing, and the patient does report increased reflux-like symptoms over the last several days, and with supportive and otherwise negative cardiac work-up, primarily suspect that this chest pain was employer relations representative of reflux/esophageal spasms Await echocardiography Recommend outpatient dobutamine stress test upon discharge - If normal, can discontinue metoprolol Maintain magnesium over 2, potassium over 4 Neck Pain / Paraspinal Spasm / Shoulder Pain - Appreciated on exam, alongside diminished shoulder testing strength on LEFT side - Suspect MSK is etiology of neck pain and shoulder pain patient was previously reporting rather than atypical ACS - Fits dermatomal distribution - C3-C5 - Reports she goes to cervical chiropractor quite often - Will obtain XR of cervical spine - Possible component of rotator cuff tendonitis too. Low suspicion for tear. - Good candidate for PT upon discharge - Consider advanced imaging after discharge (e.g., MRI) of shoulder and/or neck if dysfunction continues Mild KELLY Appreciated carotid dopplers on admission, greater on right compared to left Carotid Dopplers demonstrating nonstenotic atherosclerosis, also R>L Mild Aortic Stenosis Demonstrated on previous echocardiogram in 2019 Follow-up echocardiogram Hypothyroidism Continue levothyroxine Hyperlipidemia Continue simvastatin HTN Continue losartan, hold hydrochlorothiazide GERD Increase Protonix 40mg qAM --> b.i.d. Gout Continue allopurinol, hold hydrochlorothiazide Asthma No acute needs Continue Singulair Dispo: MS/Tele Code: FULL CODE Diet: HH PPX: SCDs (2) Hypertension: (3) Carotid bruit present: (4) Asthma: (5) Valvular heart disease: (6) Hypothyroidism: (7) Hyperlipidemia: (8) GERD (gastroesophageal reflux disease): (9) Gout: Admission and Anticipated Discharge Date Admission Date: May 13, 2021 Supervising Physician Co-Signing Physician Notes Attending Attestation - Pt seen/examined, chart reviewed, care plan d/w resident Dr Alex Saunders. I agree w/ the westfall components of his documentation. Please see my attestation/note from d/c summary with same date for additional information. Stephan Tavarez MD Subjective No acute events overnight. At the bedside this morning, patient reports feeling well overall. She is in good spirits. She endorses mild left shoulder pain right now, but no chest pain, palpitations, or shortness of breath. I did review the events that brought her into the hospitalshe says that she had sudden onset, sharp left-sided neck pain that started during her Bible study. She was not exerting herself at the time. She said that she also had a "shooting" like pain into her left shoulder, that seem to extend from the neck. It was tender to palpation. She says that as she got home, she felt a fullness/discomfort every time she swallowed. This persisted into the following morning. She talked to a friend who recommended she go to the ER. Of note, she says that her gastric reflux has been worse lately compared to before. Review of Systems Review of Systems: As per HPI Physical Exam Physical Exam: General: Well-appearing 71-year-old female who is lying back in her hospital bed relaxed, just finishing breakfast, prior to my arrival. No acute distress. Fully alert and oriented. HEENT: NCAT. Eyes - Sclera are white, anicteric, and without injection. Mouth - MMM with no tonsillar edema or exudates. Neck - unable to assess JVD reliably secondary to habitus Cardiac: Normal rate and regular rhythm; S1 and S2 are present with a grade 1 out of 6 systolic ejection murmur best heard at the right upper sternal border. Trace peripheral edema in the lower extremities bilaterally. Pulmonary: Good respiratory effort with symmetric expansion of the chest. No use of accessory muscles. Lungs were clear to auscultation bilaterally with no crackles or wheezes. Abdominal: Normoactive bowel sounds. Abdomen was soft, nondistended, and non- tender to palpation. MSK: Palpation along the cervical spine does reveal point tenderness around the level of C5/C6. There is significant paraspinal firmness and tenderness extending towards the left and posterior to the scapula. There is focalized tenderness to palpation within the infraspinatus region. Full range of motion to abduction and flexion. Strength testing of the left shoulder does demonstrate diminished strength with teres minor and supraspinatus testing. Elbow strength 5 out of 5. 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 Extremities: Upper and lower extremities are warm and well perfused. Pulses 2+ bilaterally. Psych: Well-developed, well-nourished, appropriately dressed for occasion. Behavior is cooperative and appropriate. Affect is WNL. Insight is appropriate. Results & Data Results & Data ([facility]) Vital Signs (Past 12 Hours) Vital Signs Temp Pulse Resp BP BP Pulse Ox 05/14/21 06:20 63 16 143/78 H 95 05/14/21 05:20 63 16 131/69 96 05/14/21 04:25 123/68 05/14/21 04:22 36.6 C 05/14/21 04:20 69 14 98 05/14/21 04:10 59 L 16 96 05/14/21 04:00 58 L 25 H 96 05/14/21 03:50 59 L 18 97 05/14/21 03:40 68 24 96 05/14/21 03:30 58 L 16 96 05/14/21 03:20 59 L 16 96 05/14/21 03:10 58 L 17 97 05/14/21 03:00 59 L 16 98 05/14/21 02:50 62 16 96 05/14/21 02:40 55 L 16 95 05/14/21 02:30 57 L 8 L 95 05/14/21 02:20 55 L 15 94 05/14/21 02:10 63 16 93 05/14/21 02:00 60 20 93 05/14/21 01:50 58 L 21 93 05/14/21 01:40 69 17 96 05/14/21 01:30 62 17 93 05/14/21 01:20 71 15 94 05/14/21 01:10 64 18 94 05/14/21 01:00 67 26 H 95 05/14/21 00:50 66 16 97 05/14/21 00:40 64 19 94 05/14/21 00:30 66 20 95 05/14/21 00:22 67 22 94 05/14/21 00:08 37.1 C 05/14/21 00:00 66 23 155/66 H 95 05/13/21 23:50 66 18 96 05/13/21 23:40 73 14 95 05/13/21 23:30 67 19 98 05/13/21 23:20 68 19 96 05/13/21 23:10 73 28 H 96 05/13/21 23:00 70 19 96 05/13/21 22:50 68 97 05/13/21 22:40 70 22 97 05/13/21 22:30 68 17 95 05/13/21 22:22 68 23 96 05/13/21 21:34 36.5 C 16 99 05/13/21 21:20 75 22 177/92 H 98 05/13/21 21:15 79 28 H 97 05/13/21 20:30 79 17 133/72 96 05/13/21 20:00 82 21 147/77 H 96 05/13/21 19:30 90 18 170/97 H 97 Resident Activity Tracking Resident Involvement: Resident Care Provided Care Provided: Adult Hospital Medicine
--- NOTE | 2021-05-14 07:36 | Electrocardiogram Report ---
Test Reason : Blood Pressure : / mmHG Vent. Rate : 098 BPM Atrial Rate : 098 BPM P-R Int : 198 ms QRS Dur : 086 ms QT Int : 362 ms P-R-T Axes : 053 018 056 degrees QTc Int : 462 ms Normal sinus rhythm Normal ECG When compared with ECG of 20-MAY-2019 09:28, No significant change was found Confirmed by Francisco Mae ([id number]) on 05/14/2021 7:36:05 AM Referred By: REFERRED SELF Confirmed By:Francisco Mae
[2021-05-14 07:42] LABS: Albumin Globulin Ratio 0.9 (0.9-2); Bilirubin,Total 0.4 mg/dl (0.2-1); Total Protein 7.4 gm/dl (6.4-8.2)
--- NOTE | 2021-05-14 07:52 | Electrocardiogram Report ---
Test Reason : Blood Pressure : / mmHG Vent. Rate : 061 BPM Atrial Rate : 061 BPM P-R Int : 180 ms QRS Dur : 084 ms QT Int : 450 ms P-R-T Axes : 022 006 067 degrees QTc Int : 453 ms Normal sinus rhythm Normal ECG When compared with ECG of 13-MAY-2021 14:13, Vent. rate has decreased BY 37 BPM Confirmed by Francisco Mae ([id number]) on 05/14/2021 7:51:56 AM Referred By: REFERRED SELF Confirmed By:Francisco Mae
[2021-05-14] MEDS ORDERED: CHOLECALCIFEROL 1,000 UNITS 25 MCG TAB PO SCH (09:00)
[2021-05-14] MEDS ORDERED: LOSARTAN POTASSIUM 50 MG TAB PO SCH (09:00)
[2021-05-14] MEDS ORDERED: SIMVASTATIN 20 MG TAB PO SCH (09:00)
[2021-05-14] MEDS ORDERED: allopurinoL 300 MG TAB PO SCH (09:00)
[2021-05-14] MEDS ORDERED: CALCIUM CARBONATE 1250MG TAB PO SCH (09:00)
[2021-05-14] MEDS ORDERED: MAGNESIUM OXIDE 400 MG TAB PO SCH (09:00)
[2021-05-14] MEDS ORDERED: PANTOprazole 40 MG TAB PO SCH ×2 (09:00)
[2021-05-14] MEDS ORDERED: MONTELUKAST SODIUM 10 MG TABLET PO SCH (09:00)
[2021-05-14] MEDS ORDERED: ASPIRIN 81 MG ECTAB PO SCH (09:00)
[2021-05-14 09:13] VITALS: BP 136/76; PULSE 66; O2SAT 97
--- NOTE | 2021-05-14 12:11 | XRay Report ---
CERVICAL SPINE 3 VIEWS CLINICAL HISTORY: Cervicalgia. Neck pain. FINDINGS: AP, lateral, and odontoid views of the cervical spine are obtained. No prior studies are av ailable for comparison at the time of dictation. The skeletal structures are osteopenic. There is no radiographic evidence of fracture or subluxation. Vertebral body height is maintained throughout the cervical spine. There is minimal anterolisthesis at C4-C5 and C5-C6. Alignment is otherwise preserved . The spinolaminar line is maintained. The spinous processes appear intact. The odontoid process and lateral masses are intact as seen on the open-mouth view. Productive degenerative change is noted at the atlantodental articulation. Anterior osteophytes are seen throughout. Moderate disc space narrowi ng is noted at C5-C6 and C6-C7. Small posterior disc osteophyte complexes at these levels may contrib dimitri to mild acquired compromise of the central canal. Mild disc space narrowing is noted at the remai maryam cervical levels. Multilevel facet arthropathy seen on the frontal view. The prevertebral soft ti ssues are within normal limits. There is atherosclerotic calcification of the carotid bulbs. Apical l brooklynn parenchyma is clear as imaged. IMPRESSION: 1. No acute bony abnormality is seen involving the cervical spine. 2. Osteopenia and spondylotic change as above. Dictated: 05/14/2021 11:06 AM Transcribed: 05/14/2021 11:15 AM Yaneli [id number] KE_Annaman Electronically signed by: Ej Pantoja M.D. 05/14/2021 12:10 PM
--- NOTE | 2021-05-14 13:26 | XCELERA ---
[id number]
--- NOTE | 2021-05-14 13:50 | Discharge Summary ---
Date of Service May 14, 2021 Admission HPI Per Admitting Provider The patient is a 71-year-old female with a past medical history including gout, hypertension, vitamin D deficiency, hypothyroidism, osteoarthritis, GERD, hyperlipidemia and morbid obesity. She presents with symptoms as noted above. Her symptoms yesterday began while she was standing, initially began as sharp left-sided neck pain, which then extended into her left shoulder. Her symptoms did improve later on in the day without intervention. She slept okay last night, and then as the day progressed today she did develop recurrence of the discomfort, and also had upper sternal discomfort as well. She presents to the ED for further assessment. Admission Exam Per Admitting Provider The patient is awake, alert and oriented 3, well developed and well nourished, normocephalic and atraumatic, lying in bed and in no acute distress. HEENT--PERRL, EOMI, mucous membranes and oropharynx normal. Neck--supple. No JVD. No bruits. Thyroid normal, trachea midline, no adenopathy. Heart--normal S1 and S2. No murmurs, rubs or gallops. Lungs--clear bilaterally, no respiratory distress, no accessory muscle use. Abdomen--normal bowel sounds and soft. Nontender. Nondistended. Morbidly obese Extremities--no cyanosis or clubbing. No edema. There are good distal pulses b/l. Dermatologic--normal skin turgor, normal color, no abnormal lymph nodes, no rash. Neurologic--cranial nerves II through XII grossly intact. Rheumatologic--normal range of motion. Psychiatric--normal affect. Principal Diagnosis Atypical chest pain Cervicalgia Discharge Exam General: Well-appearing 71-year-old female who is lying back in her hospital bed relaxed, just finishing breakfast, prior to my arrival. No acute distress. Fully alert and oriented. HEENT: NCAT. Eyes - Sclera are white, anicteric, and without injection. Mouth - MMM with no tonsillar edema or exudates. Neck - unable to assess JVD reliably secondary to habitus Cardiac: Normal rate and regular rhythm; S1 and S2 are present with a grade 1 out of 6 systolic ejection murmur best heard at the right upper sternal border. Trace peripheral edema in the lower extremities bilaterally. Pulmonary: Good respiratory effort with symmetric expansion of the chest. No use of accessory muscles. Lungs were clear to auscultation bilaterally with no crackles or wheezes. Abdominal: Normoactive bowel sounds. Abdomen was soft, nondistended, and non- tender to palpation. MSK: Palpation along the cervical spine does reveal point tenderness around the level of C5/C6. There is significant paraspinal firmness and tenderness extending towards the left and posterior to the scapula. There is focalized tenderness to palpation within the infraspinatus region. Full range of motion to abduction and flexion. Strength testing of the left shoulder does demonstrate diminished strength with teres minor and supraspinatus testing. Elbow strength 5 out of 5. [employer] strength full. Extremities: Upper and lower extremities are warm and well perfused. Pulses 2+ bilaterally. Psych: Well-developed, well-nourished, appropriately dressed for occasion. Behavior is cooperative and appropriate. Affect is WNL. Insight is appropriate. Discharge Data Allergies Allergy/AdvReac Type Severity Reaction Status Date / Time cat dander Allergy Mild RUNNY NOSE Verified 05/13/21 19:44 dog dander Allergy Mild RUNNY NOSE Verified 05/13/21 19:44 grass pollen-perennial rye, Allergy Mild RUNNY NOSE Verified 05/13/21 19:44 standar mold Allergy Mild RUNNY NOSE Verified 05/13/21 19:44 No Known Drug Allergies Allergy Mild . Verified 05/13/21 19:44 Consultations 05/13/21 19:34 ED Decision to Admit Stat Procedures Performed Echocardiogram: * EF 60-65% * mild LVH * mild * mild AI * grade 1 diastolic dysfunction * study technically difficult Ordered Studies US carotid doppler BI (05/13) CLINICAL HISTORY: 71 years-old Female with carotid bruit on right, decreased upstroke on left. COMPARISON: None TECHNIQUE: Multiple real time sonographic images of the carotid bifurcations were obtained assessing gao scale, color Doppler and spectral wave form appearance FINDINGS: RIGHT CAROTID: The peak systolic velocity measured within the right ICA is88 cm/sec. The end diastolic velocity measured 19 cm/sec. The ICA to CCA ratio measured 0.88 which correlates with a stenosis of 0-50%. Moderate atherosclerotic plaque of the right carotid bulb and proximal right ICA. LEFT CAROTID: The peak systolic velocity measured within the left ICA is98 cm/sec. The end diastolic velocity measured 20 cm/sec. The ICA to CCA ratio measured 0.98 which correlates with a stenosis of 0-50%. Mild atherosclerotic plaque of the left carotid bulb. There is normal antegrade vertebral flow bilaterally. IMPRESSION: 1. Right greater than left atherosclerotic plaque of the carotid bulbs. No hemodynamically significant stenosis. 2. Normal antegrade vertebral flow bilaterally. ACT 112: Negative or not required by law. --- XR chest 1V portable (05/13) HISTORY: 71 years-old Female Chest Pain . Acute atypical chest pain COMPARISON: Chest radiograph 05/20/2019 TECHNIQUE: Portable AP view of the chest FINDINGS: Cardiac silhouette is enlarged. No pneumothorax. Mild bilateral reticular interstitial opacities. Mild right hemidiaphragmatic elevation. No pleural effusion or lobar airspace consolidation. Bones appear grossly intact. IMPRESSION: Mild bilateral reticular opacities have progressed from 2019 and may be on a chronic basis. Pulmonary vascular congestion or interstitial pneumonitis also considered. ACT 112: Negative or not required by law. --- CERVICAL SPINE 3 VIEWS (05/14) CLINICAL HISTORY: Cervicalgia. Neck pain. FINDINGS: AP, lateral, and odontoid views of the cervical spine are obtained. No prior studies are available for comparison at the time of dictation. The skeletal structures are osteopenic. There is no radiographic evidence of fracture or subluxation. Vertebral body height is maintained throughout the cervical spine. There is minimal anterolisthesis at C4-C5 and C5-C6. Alignment is otherwise preserved. The spinolaminar line is maintained. The spinous processes appear intact. The odontoid process and lateral masses are intact as s een on the open-mouth view. Productive degenerative change is noted at the atlantodental articulation. Anterior osteophytes are seen throughout. Moderate disc space narrowing is noted at C5-C6 and C6-C7. Small posterior disc osteophyte complexes at these levels may contribute to mild acquired compromise of the central canal. Mild disc space narrowing is noted at the remaining cervical levels. Multilevel facet arthropathy seen on the frontal view. The prevertebral soft tissues are within normal limits. There is atherosclerotic calcification of the carotid bulbs. Apical lung parenchyma is clear as imaged. IMPRESSION: 1. No acute bony abnormality is seen involving the cervical spine. 2. Osteopenia and spondylotic change as above. Hospital Course (1) Chest pain radiating to jaw: This is a 71-year-old female with a notable past medical history of hypertension, asthma, mild aortic stenosis, hypothyroidism, hyperlipidemia, GERD, gout presented to [facility] for evaluation of 2 days of intermittent left neck pain that radiated to the jaw and substernal area. She required hospitalization for further evaluation of chest pain, and to rule out ACS. Atypical Chest Pain Patient reporting approximately 2 days of intermittent left-sided neck pain that radiated to her shoulder AND separately, feeling of "fullness" substernally when she swallowed ECG without any acute repolarization or conduction abnormalities, troponins negative x2 Stable respiratory function, no oxygen requirement, Wells 0 - unlikely PE - CXR demonstrating bilateral reticular opacities - chronic. Likely pulmonary vascular congestion. Echocardiogram 05/14: Normal left ventricular function EF 60 to 65%, severe mitral annular calcification, no regional wall motion abnormalities Given that the chest "fullness" was primarily occurring with swallowing, and the patient does report increased reflux-like symptoms over the last several days, and with supportive and otherwise negative cardiac work-up, primarily suspect that this chest pain was service representative of reflux/esophageal spasms --> Increased Protonix to 40mg PO b.i.d. Recommend outpatient dobutamine stress test upon discharge Cervicalgia / Paraspinal Spasms / Shoulder Pain - Appreciated on exam, alongside diminished shoulder testing strength on LEFT side - Suspect MSK is etiology of neck pain and shoulder pain patient was previously reporting rather than atypical ACS - Fits dermatomal distribution - C3-C5 - Reports she goes to cervical chiropractor quite often - XR cervical spine showing degenerative changes - osteophytes and osteopenia (?possible canal narrowing) - Possible component of rotator cuff tendonitis too. Low suspicion for tear. - Good candidate for PT upon discharge - Consider advanced imaging after discharge (e.g., MRI) of shoulder and/or neck if dysfunction continues Mild KELLY Appreciated carotid dopplers on admission, greater on right compared to left Carotid Dopplers demonstrating nonstenotic atherosclerosis, also R>L Mild Aortic Stenosis Demonstrated on previous echocardiogram in 2019 Follow-up echocardiogram Hypothyroidism Continue levothyroxine Hyperlipidemia Continue simvastatin HTN Continue losartan, hold hydrochlorothiazide GERD Increase Protonix 40mg qAM --> b.i.d. Gout Continue allopurinol, hold hydrochlorothiazide Asthma No acute needs Continue Singulair Code: Patient identified themselves as FULL CODE (2) Hypertension: (3) Carotid bruit present: (4) Asthma: (5) Valvular heart disease: (6) Hypothyroidism: (7) Hyperlipidemia: (8) GERD (gastroesophageal reflux disease): (9) Gout: Total Time Total Time Spent Total Time Spent (In Minutes): 30 Discharge Plan Discharge Items Patient Disposition: Home - Self-Care Reason For Visit: CHEST, NECK AND LEFT SHOULDER PAIN Discharge Diagnosis: atypical chest pain cervicalgia Activity: Per Instructions section Lifting: Gradually increase as tolerated and No more than 5 pounds Non-emergency contact: Primary Care Provider Call non-emergency contact if: your symptoms worsen, your pain is not controlled, your pain is worsening, your pain is unusual for you and your temperature is above 101 Follow-up/Referrals: Bharath Crespo DO [Primary Care Provider] - 05/19/21 12:50 pm Diet: Heart Healthy Addtl Attending Provider Instructions: You were seen at [facility] for evaluation of chest, neck, and shoulder pain.Upon arrival here, you underwent several tests to determine the cause of this pain. Thankfully, your labs and tests did not demonstrate any evidence of heart damage. Your heart ultrasound demonstrated normal function. All of your other tests also returned normal. At this time, it was thought that your pain most likely represents a combination of 2 separate problems: neck spasm in the setting of degenerative cervical spine changes, as well as gastroesophageal reflux. Upon discharge, we recommend the following: Increase Protonix from 40 mg daily to 40 mg twice daily -Recommend utilizing Voltarin gel (antiinflammatory) behind your neck to help with pain, as well as heat pads. Please discuss enrolling in physical therapy with your primary care physician to help decrease pain and increase functionality of your neck muscles and sh oulder muscles. If neck pain and shoulder dysfunction persist despite conservative measures, you and your primary care physician should discuss obtaining further imaging, such as MRI Upon discharge from the hospital, please follow-up with your primary care physician within 1 week. If you experience any further significant chest pain, palpitations, shortness of breath associated with nausea, vomiting, or other worrisome symptoms, we do recommend that you return to the ER for further evaluation. It was a pleasure caring for you while you were here, we wish you all the best in your recovery. Pending Studies at Discharge: No Stand-Alone Forms: My [facility], Smoking Cessation Medications and DC Order Prescriptions: New pantoprazole 40 mg Tablet,Delayed Release (Dr/Ec) 40 mg PO BID 30 Days Qty: 60 RF: 0 diclofenac sodium [Voltaren Arthritis Pain] 1 % gel 2 g topical QID Qty: 100 RF: 0 Continued levothyroxine 25 mcg Tablet 25 mcg PO QAM RF: 0 calcium carbonate [Calcium 600] 600 mg calcium (1,500 mg) Tablet 600 mg PO QAM RF: 0 simvastatin 20 mg Tablet 20 mg PO QAM RF: 0 montelukast 10 mg Tablet 10 mg PO QAM RF: 0 allopurinol 300 mg Tablet 300 mg PO QAM RF: 0 magnesium 250 mg Tablet 250 mg PO QAM RF: 0 hydrochlorothiazide 25 mg Tablet 25 mg PO QAM RF: 0 cholecalciferol (vitamin D3) [Vitamin D3] 1,000 unit Tablet 1,000 mg PO QAM RF: 0 losartan 50 mg tablet 50 mg PO QAM RF: 0 aspirin 81 mg Tablet,Delayed Release (Dr/Ec) 81 mg PO QAM RF: 0 meloxicam 7.5 mg tablet 7.5 mg PO QAM RF: 0 Discontinued pantoprazole 40 mg Tablet,Delayed Release (Dr/Ec) 40 mg PO QAM RF: 0 Discharge Orders: Discharge Order (Routine); Ordered 05/14/21 Ordered By: Alex Saunders Admission Data Admit Date/Time: 05/13/21 19:59 Attending Provider: Stephan Tavarez Admit Provider: lFavio Mejía Primary Care Provider: Bharath Crespo Other Providers: Flavio Mejía Other Interventions: Discharge Summary Assessment (RN) Last Done: 05/14/21 14:20 Supervising Physician Co-Signing Physician Notes Attending Attestation & Discharge Note: Pt seen/examined, chart reviewed, care plan d/w resident Dr Alex Saunders. I agree w/ the westfall components of his documentation. 71yo female with morbid obesity, GERD, HTN, asthma - presented with left-sided paraspinal neck pain that radiated into the left shoulder region. Pain was rather persistent prior to presentation, and was problematic for her in the hospital as well. In the midst of the shoulder/neck pain at home she had had upper sternal chest discomfort that was associated with some mild fullness/dysphagia with swallowing. The latter symptoms improved by the time of hospital admission. Telemetry was normal while here. Echo showed preserved EF and normal LV wall motion. Troponins were negative. Again her left-sided paraspinal neck pain was fairly persistent for most of her brief stay. I suspect that cervical spine DJD was the cause of her neck/shoulder pain; can not rule out radicular pain from the c-spine. I am uncertain as to the exact etiology of the upper chest discomfort. I agree w/ Dr Saunders that it may represent GERD. However, given her CAD risk factors, I cannot fully rule out a cardiac cause/ischemia of her chest symptoms. Therefore, prior to discharge, we discussed having her obtain an outpatient dobutamine stress test in the 1-2 weeks post-discharge. She was given various options for treating her neck/shoulder pain at time of discharge. Discharge exam: gen - NAD, obese neck - very tender paraspinal muscles of cervical spine region on left; muscles are tense w/ spasm; some tenderness with passive ROM of left shoulder as well CV - RRR, s1 s2, no murmur; no JVD lungs - CTA b/l abd - soft NT chest - no reproducible chest wall tenderness to palpation ext - no edema neuro - strength x 4 exts 5/5 b/l I agree with increase in PPI to BID dosing for possible GERD as the cause of her chest symptoms. Agree with topical Rx for neck pain. Further, as mentioned above, she was directed to speak with PCP about obtaining an outpatient dobutamine stress echo (patient would not be able to tolerate exercise stress test). Stephan Tavarez MD
--- NOTE | 2021-05-14 21:57 | Billing Data ---
Date of Service May 14, 2021 Coding Level of Care Code 53618 OBS Care - Discharge
== END 2021-05-14 15:15 | disposition home or self-care (01) ==
LOC: 1E 14:00 → ED 14:00 → SUATTDRO 19:59 → 1E 21:00

== ENCOUNTER 2023-05-04 05:07 | Observation (INO) ==
--- NOTE | 2023-04-27 10:54 | PAT Medication Instructions ---
Medication Instructions Date of Service April 27, 2023 Home Medications Medication Instructions Recorded diclofenac sodium 1 % topical gel 2 g topical QID #100 grams 05/14/21 (Voltaren Arthritis Pain) allopurinol 300 mg tablet 300 mg PO QAM calcium carbonate 600 mg calcium (1,500 mg) tablet (Calcium) 600 mg PO QAM cholecalciferol (vitamin D3) 25 mcg (1,000 unit) tablet (Vitamin D3) 1,000 mg PO QAM hydrochlorothiazide 25 mg tablet 25 mg PO QAM levothyroxine 25 mcg tablet 25 mcg PO QAM magnesium 250 mg tablet 250 mg PO QAM montelukast 10 mg tablet 10 mg PO QAM aspirin 81 mg tablet,delayed release 81 mg PO QAM losartan 50 mg tablet 50 mg PO QAM meloxicam 7.5 mg tablet 7.5 mg PO QAM diclofenac sodium 1 % topical gel (Voltaren Arthritis Pain) 2 g topical QID atorvastatin 40 mg tablet 40 mg PO HS metformin 500 mg tablet 500 mg PO HS pantoprazole 40 mg tablet,delayed release 40 mg PO QAM ASK your surgeon for instructions meloxicam 7.5 mg tablet 7.5 mg PO QAM STOP taking 24 hours before surgery diclofenac sodium 1 % topical gel (Voltaren Arthritis Pain) 2 g topical QID DO NOT take the morning of surgery calcium carbonate 600 mg calcium (1,500 mg) tablet (Calcium) 600 mg PO QAM cholecalciferol (vitamin D3) 25 mcg (1,000 unit) tablet (Vitamin D3) 1,000 mg PO QAM hydrochlorothiazide 25 mg tablet 25 mg PO QAM magnesium 250 mg tablet 250 mg PO QAM losartan 50 mg tablet 50 mg PO QAM Take morning of surgery With a small sip of water, OTHERWISE NOTHING TO EAT OR DRINK AFTER MIDNIGHT: allopurinol 300 mg tablet 300 mg PO QAM levothyroxine 25 mcg tablet 25 mcg PO QAM montelukast 10 mg tablet 10 mg PO QAM aspirin 81 mg tablet,delayed release 81 mg PO QAM (unless directed otherwise by surgeon) pantoprazole 40 mg tablet,delayed release 40 mg PO QAM Take evening before surgery atorvastatin 40 mg tablet 40 mg PO HS metformin 500 mg tablet 500 mg PO HS Other Notes If you have any questions please call us at [phone] or [phone] or [phone] or [phone]
--- NOTE | 2023-04-30 08:44 | Anesthesiology Consultation ---
Date of Service April 30, 2023 Assessment & Plan (1) Encounter for pre-operative examination: - Check BSG AM DOS - COVID screening: Per assessment on 04/30: No known COVID-19 positive contacts or current COVID-19 related symptoms. Travel screen negative. Patient vaccinated. At surgeon discretion if preop Covid testing being done. - Outpatient joint assessment: Pt currently scheduled for inpatient pathway. If surgeon requests review for outpatient joint pathway, patient is not recommended candidate for outpatient joint program from anesthesia standpoint based on available information. Chart Review Chart Review: Acceptable Risk for Surgery and Patient seen in Pre Admission Testing Teaching & Discussion Pre-Anesthesia Teaching/Discussion Notes: Instructed NPO after midnight before surgery,except medications with 15 cc of water. Medication instructions provided according to the PAT guidelines. History Surgery Operation Date: 05/08/23 08:50 Proposed Procedures p Right Total Knee Arthroplasty - Aurelio Mcconnell MD Height/Weight Height: 5 ft 4 in Weight: 131.6 kg Allergies Allergy/AdvReac Type Severity Reaction Status Date / Time cat dander Allergy Mild RUNNY NOSE Verified 04/27/23 07:36 dog dander Allergy Mild RUNNY NOSE Verified 04/27/23 07:36 grass pollen-perennial rye, Allergy Mild RUNNY NOSE Verified 04/27/23 07:36 standar mold Allergy Mild RUNNY NOSE Verified 04/27/23 07:36 No Known Drug Allergies Allergy Mild . Verified 04/27/23 07:36 Medications Home Medications Medication Instructions Recorded Confirmed Last Taken allopurinol 300 mg tablet 300 mg PO QAM 01/19/19 04/27/23 05/13/21 calcium carbonate 600 mg calcium 600 mg PO QAM 01/19/19 04/27/23 05/13/21 (1,500 mg) tablet (Calcium) cholecalciferol (vitamin D3) 25 1,000 mg PO QAM 01/19/19 04/27/23 05/13/21 mcg (1,000 unit) tablet (Vitamin D3) hydrochlorothiazide 25 mg tablet 25 mg PO QAM 01/19/19 04/27/23 05/13/21 levothyroxine 25 mcg tablet 25 mcg PO QAM 01/19/19 04/27/23 05/13/21 magnesium 250 mg tablet 250 mg PO QAM 01/19/19 04/27/23 05/13/21 montelukast 10 mg tablet 10 mg PO QAM 01/19/19 04/27/23 05/13/21 aspirin 81 mg tablet,delayed 81 mg PO QAM 05/13/21 04/27/23 05/13/21 release losartan 50 mg tablet 50 mg PO QAM 05/13/21 04/27/23 05/13/21 meloxicam 7.5 mg tablet 7.5 mg PO QAM 05/13/21 04/27/23 05/13/21 diclofenac sodium 1 % topical gel 2 g topical QID #100 grams 05/14/21 04/27/23 Unknown (Voltaren Arthritis Pain) atorvastatin 40 mg tablet 40 mg PO HS 04/27/23 04/27/23 Unknown metformin 500 mg tablet 500 mg PO HS 04/27/23 04/27/23 Unknown pantoprazole 40 mg tablet,delayed 40 mg PO QAM 04/27/23 04/27/23 Unknown release Past Medical History Medical History Aortic stenosis Echo 04/2021: Mild valvular aortic stenosis (KATEI 1.7cm2, MG 10.6mmhg) Asthma GERD (gastroesophageal reflux disease) controlled Gout History of COVID-2021 Hyperlipidemia Hypertension Hypothyroidism Morbid obesity Osteoarthritis Osteoporosis Pre-diabetes Taking Metformin Pulmonary HTN "Mild" per 08/2018 Echo, no noted pulmonary HTN per subsequent 2020 Echo Swelling of lower leg Taking HCTZ Exercise / Class Metabolic Activity III < 4 Walking/Shop/Light housework Past Family History Family History Other No significant family history Past Surgical History Surgical History History of ankle surgery Left ankle x2 Left ankle hardware removal, Left ankle tibiotalar fusion, Left retrocalcaneal nail fusion (05/31/19): Grade 3 view, MAC#3, ETT 7.5 + PNB at [facility] History of appendectomy History of carpal tunnel release R/L History of cataract surgery R/L History of section x3 History of cholecystectomy History of colonoscopy History of esophagogastroduodenoscopy (EGD) History of tonsillectomy History of tooth extraction History of total abdominal hysterectomy History of total knee replacement Left Social History Smoking Status: Never smoker Do You Dip or Chew Tobacco: No Hx Alcohol Use: Yes Alcohol type: wine alcohol intake frequency: holidays/special occasions only Hx Substance Use: No substance use type: does not use Review of Systems Patient denies chest pain, shortness of breath, dyspnea on exertion, fever, chills, cough, wheezing, palpitations. Physical Exam Vital Signs VITALS BP 138/82 P 79 TEMP WNL SP02 95%RA RESP 16 PHYSICAL Full cervical extension range of motion. Full TMJ range of motion. TMD 3.5 finger breaths Mallampati Score 3 Dentition: upper partial Lungs: clear throughout to auscultation Cardiac: regular rate and rhythm, II/ systolic murmur with carotid radiation vs bruit Spine: normal Extremities: trace LE edema Short, thick neck Lab Results Anesthesia Preop Results Results Anesthesia Widget: WBC 8.73 K/ul (4.8-10.8) 04/30/23 Hgb 13.6 g/dl (12.0-16.0) 04/30/23 Hct 40.9 % (37.0-47.0) 04/30/23 Plt 260 K/uL (130-400) 04/30/23 Na 138 mmol/L (136-145) 04/30/23 K 3.9 mmol/L (3.5-5.1) 04/30/23 Cl 103 mmol/L (98-107) 04/30/23 CO2 27 mmol/L (21-32) 04/30/23 BUN 23 mg/dl (6-23) 04/30/23 Creat 0.63 mg/dl (0.6-1.2) 04/30/23 Glucose Level 98 mg/dl (70-99(Fasting)) 04/30/23 PT 10.9 Seconds (9.0-12.0) 04/30/23 PTT 29.3 Seconds (21.0-31.0) 04/30/23 INR 1.0 (0.9-1.1) 04/30/23 HA1c 5.8 % (4.5-5.6) H 04/30/23 Blood Type O Positive 04/30/23 Antibody Screen NEGATIVE 04/30/23 Testing Electrocardiogram Date: 04/30/23 Findings: + NSR @ (80) Chest X-Ray Date: 07/17/23 FINDINGS: No pneumothorax. No pleural effusions. The cardiac silhouette is normal in size. Mild prominence of interstitial markings remains unchanged. This is likely chronic. No new focal lung consolidations to suggest a pneumonia. No evidence for pulmonary edema. Mitral and its calcifications are again noted. Prior cholecystectomy. Degenerative changes within the thoracic spine. IMPRESSION: No significant change compared to the prior study. No acute process. Echocardiogram Date: 04/16/21 EF 60-65%. LV wall motion is normal. Mild cLVH. Grade I DD. Mild valvular aortic stenosis (KATIE 1.7cm2, MG 10.6mmhg). Mild AR. Moderate to severe mitral annular calcification. Other Testing Carotid doppler Date: 05/13/21 Right greater than left atherosclerotic plaque of the carotid bulbs. No hemodynamically significant stenosis. Normal antegrade vertebral flow bilaterally. COVID-19 Risk Screen Screening Information COVID-19 Screen Date: 04/30/23 Exposure 21 Days Family/Household +COVID Last 21 Days: No Exposure 10 Days Any COVID Exposure Last 10 Days: No Symptoms Last 10 Days Experienced COVID Sx Last 10 Days: No + COVID 0-90 Days COVID + in Last 0-90 Days: No
[2023-05-04] MEDS: ACETAMINOPHEN 500 MG TAB PO SCH ×4 (05:49→21:17)
[2023-05-04] MEDS ORDERED: TRANEXAMIC ACID 1,000 MG **IV Intra-op IV SCH (06:00)
[2023-05-04] MEDS ORDERED: FAMOTIDINE 20 MG TAB PO SCH (06:00)
[2023-05-04] MEDS ORDERED: BUPIVACAINE LIPOSOME/PF 266 MG, BUPIVACAINE/EPINEPHRINE 50 ML, SODIUM CHLORIDE 0.9% PF ... INFIL SCH (06:00)
[2023-05-04] MEDS ORDERED: LR 60ML/HR IV SCH (06:00)
[2023-05-04] MEDS ORDERED: LR 500ML BOLUS, THEN 15ML/HR IV SCH (06:00)
[2023-05-04] MEDS ORDERED: CeleBREX 200 MG CAP PO SCH (06:00)
[2023-05-04] MEDS ORDERED: METOCLOPRAMIDE HCL 10 MG TABLET PO SCH (06:00)
[2023-05-04] MEDS ORDERED: dexAMETHasone**PF** 10 MG/ML VIAL IV SCH (06:00)
[2023-05-04] MEDS ORDERED: BUPIVACAINE 0.5 % 5 MG/1 ML PF 10ML VIAL ONE (06:22)
[2023-05-04] MEDS ORDERED: fentaNYL citrate PF 100 MCG/2 ML VIAL ONE (06:42)
[2023-05-04] MEDS ORDERED: MIDAZOLAM HCL 1 MG/ML 2ML VIAL ONE (06:42)
[2023-05-04] MEDS ORDERED: PROPOFOL IV EMULSION 10 MG/ML 20 ML VIAL IV ONE (06:44)
[2023-05-04] MEDS ORDERED: BUPIVACAINE/EPINEPHRINE 0.25% 1:200,000 30 ML VIAL ONE (06:54)
[2023-05-04] MEDS ORDERED: BUPIVACAINE LIPOSOME 1.3% 266 MG/20 ML VIAL ONE (06:54)
[2023-05-04] MEDS ORDERED: SODIUM CHLORIDE 0.9% PF 50 ML VIAL ONE (06:54)
--- NOTE | 2023-05-04 06:57 | History & Physical Bridge Note ---
Date of Service May 04, 2023 History & Physical Bridge Note I have examined the patient, reviewed the History & Physical and in the interval since the performance of the History & Physical I have noted the following changes of clinical significance: no changes noted
[2023-05-04] MEDS ORDERED: ePHEDrine sulfate 50 MG/ML AMP IV PRN (07:55)
[2023-05-04] MEDS ORDERED: ATROPINE SULFATE 0.1 MG/ML 10ML SYR IV PRN (07:55)
[2023-05-04] MEDS ORDERED: ONDANSETRON INJ 2 MG/ML 2 ML VIAL IV PRN ×2 (07:55→11:32)
[2023-05-04] MEDS ORDERED: MoRPHine SULFATE 10 MG/ML CARP/VIAL IV PRN (07:55)
[2023-05-04] MEDS ORDERED: MEPERIDINE HCL 25 MG/ML CARP/VIAL IV PRN (07:55)
[2023-05-04] MEDS ORDERED: VANCOMYCIN HCL 1000MG/20ML VIAL ONE ×2 (07:56→09:31)
[2023-05-04] MEDS ORDERED: ROCURONIUM BROMIDE 10 MG/ML 5 ML VIAL IV ONE (08:15)
[2023-05-04] MEDS ORDERED: SUGAMMADEX SODIUM 200 MG/2 ML VIAL IV ONE ×2 (09:21→10:02)
[2023-05-04] MEDS ORDERED: CARBOHYDRATES FOR HYPOGLYCEMIA PO PRN (10:12)
[2023-05-04] MEDS ORDERED: GLUCOSE 40% GEL 15 GM TUBE PO PRN (10:12)
[2023-05-04] MEDS ORDERED: DEXTROSE 50% 50 ML SYRINGE IV PRN (10:12)
[2023-05-04] MEDS ORDERED: GLUCAGON FOR INJ 1 MG VIAL SQ PRN (10:12)
[2023-05-04] MEDS ORDERED: GLUCOSE 10 TAB/TUBE PO PRN (10:12)
--- NOTE | 2023-05-04 10:21 | Operative Report ---
PG Post Operative Report Pre & Post Diagnosis Operation Date: 05/04/23 07:00 Pre-Op Diagnosis: Right Knee Degenerative Joint Disease Post-Op Diagnosis: Right Knee Degenerative Joint Disease I identified the patient and participated in the time-out.: Yes Procedure Operation Date: 05/04/23 07:00 Actual Procedures p Right Total Knee Arthroplasty(Right) - Aurelio Mcconnell MD Surgeon Aurelio Mcconnell MD Utilities Ground Worker Tyrese Reeder PA-C Estimated Blood Loss 100 Findings Consistent with Post-Op Diagnosis Operative findings revealed very large soft tissue envelope. She had a very stiff knee with about a 10 degree flexion contracture and only bend about 20 degrees. She had extensive grade 4 [id number] disease in all 3 compartments with extensive osteophyte formation and scarring of her extensor mechanism down to her knee and distal femur. Specimens Right knee sent for pathology. Anesthesia Type General Regional Complications none Disposition Accompanied Patient To Recovery: No Indications Patient is a 73-year-old morbidly obese female said a long history of right knee pain discomfort and stiffness. She has a 15 to 20-year history of progressive knee pain and discomfort. She failed all conservative measures. She developed a very stiff knee over the years. She is now elected proceed with total knee arthroplasty. Description of Procedure Operative implants consist of: 1 Biomet Vanguard size 70 right posterior stabilized femoral component. 2. Biomet size 67 tibial tray with a 80 x 14 mm stem, 5 mm offset, small cruciate wing. 3. 14 mm posterior stabilized polyethylene insert. 4. 31 x 8 all poly patella. The patient was taken the operating, identified, placed on the operating table supine position architectures were properly padded. IV antibiotics tried by anesthesia team. A spinal anesthetic and been implemented holding area. We attempted to place a Madrid cath and we could not even bend her legs to do this. The spinal clearly was not working so a general anesthetic was implemented. A Madrid catheter was then placed in sterile fashion. Right thigh tent was then placed in the right lower extremities and prepped and draped in usual sterile fashion. The right leg was elevated and exsanguinated with use of an Esmarch and the tourniquet was placed at 350 mmHg. An anterior approach to the right knee was then performed through a longitudinal incision centered over the patella. Sharp passes Through subcutaneous tissue down the extensor mechanism. There is extensive scarring even in the subcu tissues and it was a little difficult to determine the extent depth of the patella tendon. We cautiously approach this in the left little tissue on the patella tendon itself. A medial prepped arthrotomy incision was made. Subperiosteal dissection was carried out medially. The fat pad was dissected from Neath patella tendon. Even after this we could hardly bend the knee. I therefore elected to try to cut the patella. The patella was cleaned. I removed some the osteophytes. I remove the lateral osteophyte. Eventually I was able to cut the patella. The thickness measured initially 22 mm and cut down to 13. Had to cut this in a vertical position due to the limited eversion. I then did a release of the lateral patellofemoral ligament. I did a complete synovectomy of the suprapatellar pouch and the medial lateral gutters in order to mobilize extensor mechanism which was scarred down of the femur. We able to subluxate the patella and flex the knee. I elected to cut the femur first in order to again a little bit more room to do the tibia. At the distal femur during the sharp drop with intramedullary canal was suction. Right 5 degree valgus cutting guide was placed. Distal femoral cutting block was pinned in place and distal femur was then cut to take an additional 3 mm of bone off distal femur. I then proceeded with the tibia. The tibial eminence was resected. I then reamed the tibia up to a size 14. The IM shahram was left in place and the cutting guide was placed on the IM shahram. I cut the tibia to take an additional millimeter off the most deficient aspect medial tibial plateau. Some osteophytes taken off medially. The tibia was sized to a size 67. We then prepared this for 5 mm offset stem with a 14 mm x 80 extension. We then went to prepared the remainder of the femur. The femur was then sized to a size 70. The AP cutting block was pinned parallel to the epicondylar axis which was 4 degrees of external rotation. The anterior cut, anterior chamfer, posterior cut, posterior chamfer cuts were made. The box cutting guide was placed in the just slight lateral box cut was made for the knee was flexed. The remnants of the medial and lateral menisci were excised. The osteophytes taken off the posterior aspect of the femur. Trial femoral component was placed. The tibial tray was then assembled and placed. I trialed the knee and the 14 mm insert fit most appropriately. I then did prepare the patella for a 31 patella. The locals were drilled. The patella tracked nicely. Having done this we able to flex her knee to 90 degrees and Ethibide it due to the tightness of the extensor mechanism. I did not feel like I could release this anymore and we accepted this considering her preoperative status. All trial implants were removed. A bone plug was placed in distal femur limit blood loss. Double batch Palacos G cement was mixed. I did add an additional gram of vancomycin. I then placed a size 70 right femoral component followed by a 67 tray with the 80 x 14 mm offset stem, small cruciate wing, or 10 mm polyethylene insert, and a 31 x 8 all poly patella. The knee was brought out in full extension till cement hardened. Final cement check was then performed. We irrigated the wound extensively. I injected locally with a total of 100 cc of combination of 20 cc of Exparel, 30 cc normal saline, 50 cc of quarter percent Marcaine with epinephrine. Patient did receive 1 g tranexamic acid to the tourniquet was then let down for tourniquet time of 106 minutes. Hemostasis assured use electrocautery. The wounds once again irrigated. Extensor mechanism closed with combination 1 PDS suture #1 Vicryl suture in a [id number] fashion. I did place 1 additional gram of vancomycin powder in the depth of the wound to limit the risk of infection. The subcutaneous tissues were then closed with 2 Dexon suture in buried interrupted fashion skin was closed skin nesha. Leg was then cleaned and dried and sterile dressing was Xeroform, 4 fours, sterile cast padding, Jose bandage were applied. The patient then brought out of general esthesia and transferred to the cover room in stable condition. Patient tolerated procedure well and there are no complications. Tyrese Reeder, my physician patient assistant, was present for the entire procedure. His assistance was essential and required for appropriate patient positioning, prepping and draping, surgical exposure, performing the technical details of the operation, placement the implants, closure of the wound, and placement of the sterile bandage. I attest to the content of the Intraoperative Record and any orders documented therein. Any exceptions are noted below.
[2023-05-04] MEDS: fentaNYL citrate PF 100 MCG/2 ML VIAL IV PRN ×4 (10:32→10:47)
--- NOTE | 2023-05-04 10:52 | XRay Report ---
TWO VIEWS RIGHT KNEE CLINICAL HISTORY: Postoperative examination. FINDINGS: AP and crosstable lateral portable views of the right knee are obtained. A right knee arthr oplasty is in near anatomic alignment. There is a long tibial stem. There has been undersurface remod eling of the patella. No acute fracture is seen. There are expected postoperative changes around the knee including skin clips, soft tissue edema, and subcutaneous gas. IMPRESSION: Expected postoperative changes status post right knee arthroplasty. No acute fracture is seen. ACT 112: Negative or not required by law. Electronically signed by: Ej Pantoja M.D. 05/04/2023 10:51 AM
--- NOTE | 2023-05-04 11:16 | Anesthesiology Progress Note ---
Date of Service May 04, 2023 Anesthesia Post Procedure Vital Signs Vital Signs: Temp Pulse Resp BP Pulse Ox O2 Del Method O2 Flow Rate 05/04/23 11:10 95 H 18 132/75 95 Nasal Cannula 4 05/04/23 11:00 93 H 19 135/73 94 Nasal Cannula 4 05/04/23 10:50 36.2 C L 92 H 18 147/70 H 94 Nasal Cannula 4 05/04/23 10:40 87 18 119/63 93 Nasal Cannula 4 05/04/23 10:30 91 H 19 137/63 93 Oxymask 6 05/04/23 10:20 94 H 20 127/58 L 92 Oxymask 6 05/04/23 10:14 36.5 C 95 H 20 137/63 92 Oxymask 6 05/04/23 05:40 36.7 C 94 H 20 204/82 H 96 Room Air Pain Intensity Right Knee: Pain Intensity: 6 Transfer of Care Handoff Completed per policy Notes Mental Status: alert / awake / arousable Patient Amnestic to Procedure: Yes Nausea / Vomiting: adequately controlled Pain: adequately controlled Airway Patency, RR, SpO2: stable & adequate BP & HR: stable & adequate Hydration State: stable & adequate Anesthetic Complications: no major complications apparent and Pt Satisfied with anesthetic care
[2023-05-04] MEDS ORDERED: MAGNESIUM HYDROXIDE SUSP 30 ML UDC PO PRN (11:32)
[2023-05-04] MEDS ORDERED: bisacodyL 10 MG SUPP PR PRN (11:32)
[2023-05-04] MEDS ORDERED: PHARMACY GLYCEMIC MGMT CONSULT PRN (11:32)
[2023-05-04] MEDS ORDERED: NALOXONE HCL 0.4 MG/1 ML VIAL/CARP IV PRN (11:32)
[2023-05-04] MEDS ORDERED: METOCLOPRAMIDE HCL INJ 5 MG/ML 2 ML VIAL IV PRN (11:32)
[2023-05-04] MEDS ORDERED: HYDROmorphone INJ 0.5 MG/0.5 ML SYR IV PRN (11:32)
[2023-05-04] MEDS ORDERED: ALUMINUM/MAGNESIUM SUSP 30 ML UDC PO PRN (11:32)
[2023-05-04] MEDS: SODIUM CHLORIDE 0.9% 1000ML 1,000 ML IV SCH ×2 (11:56→22:00)
[2023-05-04] MEDS: KETOROLAC TROMETHAMINE 15 MG/ML VIAL IV SCH ×2 (12:06→16:54)
[2023-05-04] MEDS ORDERED: NovoLIN-N (NPH) PER UNIT CHARGE SQ ONE (12:30)
[2023-05-04] MEDS: INSULIN ASPART PER UNIT CHARGE SC SCH ×3 (13:03→21:29)
--- NOTE | 2023-05-04 14:24 | Pharmacy Report ---
Pharmacy Glycemic Short Note 2 - Date of Service May 04, 2023 - Glycemic Short BSG Results (Last 24 hours): 05/04/23 05/04/23 06:22 11:59 POC Glucose 108 H 174 H OUTPATIENT ANTIDIABETIC REGIMEN: * metformin 500 mg PO HS * HbA1C= 5.8% (04/30/23) ASSESSMENT: * Ms Slade is a 73 y/o F with a PMH of T2DM who presents for R knee replacement. * Preop BSG was 108 mg/dL and postop BSG was 174 mg/dL. * Patient received dexamethasone 10 mg IV preop + is ordered dexamethasone 10 mg IV POD 1. * Will give NPH 35 units (0.4 units/kg of adjBW) x 1. Repeat with dexamethasone tomorrow. * Novolog weight-based stress 2. PLAN FOR INPATIENT GLYCEMIC CONTROL: * Hold outpatient oral diabetes medications * Basal insulin * NPH 35 units SQ with dexamethasone 10 mg IV * Bolus insulin * NovoLog per scale ACHS or Q6hrs while NPO * Goal Range: Low 110 mg/dL - High 140 mg/dL * Correction Factor: 20 mg/dL/unit * Nutritional / Prandial insulin per carb ratio of 1 unit per 6 grams CHO consumed
[2023-05-04] MEDS: oxyCODONE HCL IR 5 MG TAB (IMMEDIATE RELEASE) PO PRN ×2 (14:34→21:14)
[2023-05-04] MEDS ORDERED: TRANEXAMIC ACID / 0.7% NACL 1,000 MG/100 ML BAG IV SCH (16:15)
[2023-05-04] MEDS: ASCORBIC ACID 500 MG TAB PO SCH (16:17)
[2023-05-04] MEDS: ceFAZolin 2000MG 2,000 MG/15 ML SYR IV SCH (16:54)
[2023-05-04] MEDS ORDERED: SENNA 8.6 MG TAB PO SCH ×2 (21:00)
[2023-05-04] MEDS ORDERED: ATORVASTATIN 40 MG TAB PO SCH (21:00)
[2023-05-04] MEDS: ASPIRIN 81 MG ECTAB PO SCH (21:16)
[2023-05-04] MEDS: DOCUSATE SODIUM 100 MG CAP PO SCH (21:16)
[2023-05-05] MEDS: ceFAZolin 2000MG 2,000 MG/15 ML SYR IV SCH (00:14)
[2023-05-05] MEDS: KETOROLAC TROMETHAMINE 15 MG/ML VIAL IV SCH ×2 (00:14→05:50)
[2023-05-05 06:17] LABS: Hemoglobin 10.8 g/dl (12.0-16.0); Mean Corpuscular Hemoglobin 29.9 pg (25.0-34.0); Mean Corpuscular Hgb Conc 33.8 g/dL (32.0-36.0); Mean Corpuscular Volume 88.6 fL (80.0-100.0); Mean Platelet Volume 10.1 fL (9.4-12.4); Platelet Count 209 K/uL (130-400); RDW Coefficient of Variation 13.8 % (11.5-14.5); RDW Standard Deviation 45.1 fL (36.4-46.3); Red Blood Count 3.61 M/uL (4.20-5.40); White Blood Count 14.87 K/ul (4.8-10.8)
[2023-05-05 06:18] LABS: BUN Creatinine Ratio 27.7 (10-20); Calcium 8.4 mg/dl (8.6-10.3); Creatinine Clr Calc Pharmacy 81.4 ml/min; Est GFR (African American) 81.1 ml/min; Potassium 4.2 mmol/L (3.5-5.1)
[2023-05-05] MEDS ORDERED: LEVOTHYROXINE SODIUM 25 MCG TABLET PO SCH (06:30)
--- NOTE | 2023-05-05 07:48 | Orthopedic Progress Note ---
Date of Service May 05, 2023 Assessment & Plan (1) Status post right knee replacement: Patient is postoperative day 1 status post right knee replacement doing well. Pain is controlled. She is neurologically intact. Plan; 1. DVT prophylaxis including thigh-high teds SCDs and aspirin twice a day. 2. PT OT. Weight-bear as tolerated. Right total knee protocol. She is not can get more than 90 degrees of knee bend at max. 3. Pain control doing well with current pain regimen 4. disposition plan discharged home with some home health later today. Subjective Postoperative day 1 from a right knee replacement. She is doing well. Fairly minimal pain. Got up and walked several times last evening. Open to go home today. Review of Systems All systems reviewed & are unremarkable except as noted in HPI & below. Physical Exam . Physical examination reveals a pleasant middle-age female. Sitting up in bed looks quite comfortable. Examination of the right leg reveals the leg to be well aligned. Dressing is clean dry and intact. She can dorsiflex and plantarflex her foot appropriately. She is neurologically intact. Neck trachea midline, no thyromegaly Respiratory normal respiratory effort, lungs clear to auscultation Cardiovascular RRR, no murmur, no edema Gastrointestinal (Abdomen) normal bowel sounds, soft, nontender, no hepatosplenomegaly Results & Data Results & Data Laboratory Results Hemoglobin is 10.8. Hematocrit 32.0. Electrolytes are stable Diagnostic Findings . PG Care Time/CCT Total # of Minutes Spent Total Time Spent with Patient: Total time spent is greater than 50% in coordination of care (as documented) at patient's floor/unit and/or counseling patient: Coding Level of Care Code 10190 Post Operative Follow-Up Diagnoses Status post right knee replacement Z96.651
[2023-05-05] MEDS ORDERED: dexAMETHasone 10 MG in SYRINGE 0 ML IV SCH (08:00)
[2023-05-05] MEDS ORDERED: allopurinoL 300 MG TAB PO SCH (09:00)
[2023-05-05] MEDS ORDERED: MAGNESIUM OXIDE 400 MG TAB PO SCH (09:00)
[2023-05-05] MEDS ORDERED: MONTELUKAST SODIUM 10 MG TABLET PO SCH (09:00)
[2023-05-05] MEDS ORDERED: CHOLECALCIFEROL 1,000 UNITS 25 MCG TAB PO SCH (09:00)
[2023-05-05] MEDS ORDERED: hydroCHLOROthiazide 25 MG TAB PO SCH (09:00)
[2023-05-05] MEDS ORDERED: LOSARTAN POTASSIUM 50 MG TAB PO SCH (09:00)
[2023-05-05] MEDS ORDERED: CALCIUM CARBONATE 1250MG TAB PO SCH (09:00)
[2023-05-05] MEDS ORDERED: PANTOprazole 40 MG TAB PO SCH (09:00)
[2023-05-05] MEDS ORDERED: MULTIVITAMIN TAB PO SCH (09:00)
[2023-05-05] MEDS: INSULIN ASPART PER UNIT CHARGE SC SCH (09:17)
[2023-05-05] MEDS: ASCORBIC ACID 500 MG TAB PO SCH (09:38)
[2023-05-05] MEDS: ASPIRIN 81 MG ECTAB PO SCH (09:39)
[2023-05-05] MEDS: DOCUSATE SODIUM 100 MG CAP PO SCH (09:41)
[2023-05-05] MEDS: ACETAMINOPHEN 500 MG TAB PO SCH (09:41)
[2023-05-05] MEDS: oxyCODONE HCL IR 5 MG TAB (IMMEDIATE RELEASE) PO PRN (09:46)
--- NOTE | 2023-05-14 08:48 | Discharge Summary ---
Date of Service May 14, 2023 Discharge Data Procedures Performed Operation Date: 05/04/23 07:00 Actual Procedures p Right Total Knee Arthroplasty(Right) - Aurelio Mcconnell MD Hospital Course (1) Status post right knee replacement: This is a 73 year old patient admitted on 05/04/23 and underwent total knee arthroplasty. She tolerated the procedure well and there were no complications. Transferred to the PACU post op and later to the orthopedic floor for further care. She was given ancef for antibiotic prophylaxis. She was also given ANTONY stockings, SCDs, and aspirin for DVT prophylaxis. Hemoglobin, hematocrit, and vital signs were monitored during her hospital stay and remained stable. Did not require any blood transfusions. There were no complications during her hospital stay. By post op day #1 the patient was tolerating a diabetic diet, pain was reasonably controlled with oral pain medicine, and she was participating in physical therapy. On post op day #1 the patient was discharged home and set up with home health care. She was given printed discharge instructions including prescriptions for extra strength tylenol, aspirin, cefadroxil, ketorolac, zofran, senokot, and oxycodone. Continue physical therapy, weight bearing as tolerated. Continue ANTONY stockings. Follow up approximately 2 weeks post op or sooner if there are problems or concerns. Coding Level of Care Code None Diagnoses Status post right knee replacement Z96.651
== END 2023-05-05 12:06 | disposition home health service (06) ==
LOC: 3E 05:07 → ASU 05:07